=== PATIENT | female | born 1955 | race Caucasian/White ===

== ENCOUNTER → 2016-08-10 | Outpatient (CLI) | payer OTHER, MEDICAID ==
[2016-07-22 20:47] VITALS: BP 153/73
--- NOTE | 2016-08-10 16:31 | MRI ---
HISTORY: Oculomotor nerve palsy right eye Study: MRA head without contrast Comparison: Brain MRI 07/14/2016 Technique: 3-D [id number] imaging of the intracranial circulation was performed. Findings: The anterior circulation demonstrates normal anatomic findings. The internal carotid artery, Right M1 segment, and bilateral A1 segments do not demonstrates atherosclerotic changes. 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 No aneurysmal changes or evidence for vascular malformation can be identified. The posterior circulation demonstrates a posterior communicating artery on the r ight and left. The basal vertebral system is normal in its appearance. IMPRESSION: 1. Unremarkable MRA of the brain. Reported By:
== END ==
LOC: RAD 14:42
PROVIDERS: ATTEND Ophthalmology
DX: H49.01 Third [oculomotor] nerve palsy, right eye (principal)
CPT/HCPCS: 70544

== ENCOUNTER → 2016-08-25 | Outpatient (CLI) | payer OTHER, MEDICAID ==
[2016-07-22 20:47] VITALS: BP 153/73
--- NOTE | 2016-08-25 12:46 | RAD ---
HISTORY: SLE, shortness of breath Study: Two view chest Comparison: 05/27/2014 Findings: Mild atelectasis or scarring at the left lung base is unchanged. The lungs are clear without consoli dation, effusion or pneumothorax. The cardiac and mediastinal contours are within normal limits. Th e soft tissues are unremarkable. IMPRESSION: 1. Stable chest with some mild chronic scarring or atelectasis at the left lung base. No new abnorma lity identified. Reported By:
== END | disposition home or self-care (01) | DRG 204 ==
LOC: RAD 11:47
PROVIDERS: ATTEND Internal Medicine Rheumatology
DX: R06.09 Other forms of dyspnea (principal); M32.8 Other forms of systemic lupus erythematosus; R30.0 Dysuria; M47.816 Spondylosis without myelopathy or radiculopathy, lumbar region; M19.041 Primary osteoarthritis, right hand; M19.042 Primary osteoarthritis, left hand; M17.0 Bilateral primary osteoarthritis of knee; Z79.899 Other long term (current) drug therapy; Z79.891 Long term (current) use of opiate analgesic; G56.01 Carpal tunnel syndrome, right upper limb; E55.9 Vitamin D deficiency, unspecified; E56.8 Deficiency of other vitamins
CPT/HCPCS: 71020

== ENCOUNTER → 2016-11-02 | Outpatient (CLI) | payer OTHER, MEDICAID ==
[2016-07-22 20:47] VITALS: BP 153/73
--- NOTE | 2016-11-02 12:55 | RAD ---
HISTORY: back pain Study: Thoracic spine three views Comparison: None Findings: There is splinting to the left which could be positional or due to muscle spasm. The alignment is ot herwise normal. The vertebral bodies are of average height. The disc spaces are preserved. The pedic les are intact. The paraspinous soft tissues are normal. Diffuse spondylosis is present. IMPRESSION: Splinting to the left which could be positional or due to muscle spasm Spondylosis Reported By:
--- NOTE | 2016-11-02 12:57 | RAD ---
HISTORY: Right rib pain Study: Right ribs four views Comparison: August 25, 2016 Findings: Examination of the right ribs demonstrated no definite evidence for fracture, lytic, or blastic lesi on. No pneumothorax or pleural effusion is identified. The lung triana are clear. The heart is upper limits normal in size. IMPRESSION: Lungs clear Intact right ribs Reported By:
== END ==
LOC: RAD 11:58
PROVIDERS: ATTEND Nurse Practitioner Family
DX: J44.9 Chronic obstructive pulmonary disease, unspecified (principal); M51.36 Other intervertebral disc degeneration, lumbar region; R10.11 Right upper quadrant pain
CPT/HCPCS: 71111; 72072

== ENCOUNTER 2016-12-03 16:16 | Emergency (ER) | payer OTHER, MEDICAID ==
[2016-12-03 16:20] VITALS: BP 138/83; BMI 39.0
--- NOTE | 2016-12-03 17:01 | DR.GENAD ---
HPI - PCP Primary Care Physician: MICHELA - HPI Comment HPI Comment: PATIENT NOTICE RED AREA YESTERDAY. NO DRAINAGE. REDNESS EXTENDING. - Complaint/Symptoms Chief Complaint Doctors Comments: CALUS INFLAME, RED AND TENDER OVER RIGHT 5TH TOE. JERALD IS A DIABETIC. Chief Complaint:: RIGHT SMALL TOE RED AND SWOLLEN - Nurses notes reviewed Nurses Notes Review: Yes - Source History Provided: Patient - Mode of Arrival Mode of Arrival: Ambulatory - Timing Onset of Chief Complaint: 12/02/16 Came on: Suddenly - Duration Duration: Constant Duration: Days - Severity Severity: Moderate PMH - PMH Past Medical History: Yes Past Medical History: Arthritis, COPD, Diabetes, Hypertension Past Surgical History: Yes Surgical History: Cholecystectomy, Hysterectomy, Ortho Surgery - Family History History of Family Medical Conditions: Yes Family Medical History: Diabetes Mellitus, Coronary Artery Disease, Hypertension - Social History Does patient currently use any type of tobacco product: No Have you used tobacco products in the last 12 months: No Type of Tobacco Use: None Does any household member use tobacco: No Alcohol Use: None Do you use any recreational Drugs:: No Lives With: Family Lives Where: Home - infectious screening In the last 2 months have you had wt loss of >10#?: NO Have you had fever, night sweats or hemotysis?: No Have you traveled outside the country in the last 6 months?: No Isolation: Standard ROS - Review of Systems Constitutional: No Symptoms Reported Eyes: No Symptoms Reported ENTM: No Symptoms Reported Respiratoy: No Symptoms Reported Cardiovascular: No Symptoms Reported Gastrointestinal/Abdominal: No Symptoms Reported Genitourinary: No Symptoms Reported Neurological: No Symptoms Reported Musculoskeletal: Right, Foot Integumentary: Other (REDNESS RT TOE.) Hematologic/Lymphatic: Easy Bruising Endocrine: negative: Flushing, Increased Thirst, Increased Urine All Other Systems: Reviewed and Negative PE - Vital Signs Vitals: Temperature 97.8 F Pulse Rate 90 Respiratory Rate 18 Blood Pressure [Left Arm] 153/73 Blood Pressure [Right Arm] 152/72 Blood Pressure 138/83 O2 Sat by Pulse Oximetry 99 - General Limitations: No Limitations General Appearance: Alert - Head Head Exam: Normal Inspection - Eyes Eye exam: Normal Appearance - ENT ENT Exam: Normal External Ear Exam External Ear Exam: Normal External Inspection TM/Canal Exam: Bilateral Normal Nose Exam: Normal Nose Exam Mouth Exam: Normal Inspection Throat Exam: Normal Inspection - Neck Neck Exam: Trachea Midline - Chest Chest Inspection: Symmetric Chest Wall Rise - Respiratory Respiratory Exam: Normal Lung Sounds Bilat Respiratory Exam: Bilateral Clear to Auscultation - Cardiovascular Cardiovascular Exam: Regular Rate, Normal Rhythm, Normal Heart Sounds - Abdominal Exam Abdominal Exam: Normal Inspection - Extremities Extremities Exam: Normal Inspection - Back Back Exam: Normal Inspection - Neurologic Neurological Exam: Alert, Oriented X3 - Psychiatric Psychiatric Exam: Normal Affect, Normal Mood - Skin Skin Exam: Normal Color MDM - Differential Diagnosis Differential Diagnosis: CELLULITIS, INFECTED TOE. Course - Treatment Treatment: SEE ORDERS - Education/Counseling Education/Counseling: Patient, Education Educated On: Diagnosis, Needs for Follow Up ROR - XRAY XRAY Interpreted by: Radiologist XRAY Findings: REPORT DISCUSS WITH PATIENT. - Diagnosis Discharge Problem: Toe infection - Discharge Plan Disposition: 01 HOME, SELF-CARE Condition: Stable Prescriptions: Clindamycin HCl 300 mg PO Q6H #40 cap - Follow ups/Referrals Follow ups/Referrals: NATALI ABERNATHY [Primary Care Provider] - 3 days - Instructions Instructions: Cellulitis Additional Instructions: RETURN TO ED IF WORSE.
--- NOTE | 2016-12-03 17:24 | RAD ---
HISTORY: Pain, 5th toe swelling and redness Study: Three views right foot Comparison: None Findings: There are degenerative changes of the midfoot, 1st MTP joint as well as prominent calcaneal enthesop athy present. No acute fracture or dislocation. There is soft tissue swelling overlying the 5th digi t. No subcutaneous gas or foreign body identified. IMPRESSION: 1. 5th digit soft tissue swelling. No acute osseous abnormality identified. Degenerative changes as described. Reported By:
[2016-12-03] MEDS ORDERED: CLEOCIN PO ONE (18:00)
[2016-12-03] MEDS ORDERED: CLEOCIN ONE (18:07)
== END 2016-12-03 18:17 | disposition home or self-care (01) ==
LOC: ER 16:26
DX: L08.89 Other specified local infections of the skin and subcutaneous tissue (principal)
CPT/HCPCS: 73630; 99282; 99283

== ENCOUNTER → 2016-12-29 | Outpatient (CLI) | payer OTHER, MEDICAID ==
[2016-12-03 16:20] VITALS: BP 138/83
--- NOTE | 2016-12-29 11:37 | CT ---
CT abdomen pelvis without contrast Indication: Right upper quadrant abdominal pain Technique: Helical CT images of the abdomen and pelvis were obtained without IV contrast. Reformatte d images in the coronal and sagittal planes were also generated for review. Comparison: None Findings: Apart from mild left lower lobe atelectasis, the visualized lung bases are clear. Posterio r lumbosacral fusion hardware spanning L3-S1 is present. No aggressive osseous lesions are identifie d. The gallbladder is surgically absent. Within the limits of a noncontrast exam, the liver, spleen, pa ncreas, adrenals and kidneys are unremarkable. The GI tract, including the appendix is within normal limits. There is a fat containing supraumbilical ventral hernia without associated bowel loops or i nflammation. There are additional fat containing hernias within the left lateral flank and left lowe r abdominal wall. The abdominal aorta is mildly calcified without aneurysm. The urinary bladder is collapsed. The krzysztof ent is post hysterectomy. No free air, free fluid or lymphadenopathy is identified. Impression: 1. Fat containing ventral and left abdominal wall hernias, as detailed above without associated shalom l loops or inflammatory stranding. 2. Otherwise, no acute abnormality identified to explain patient's right upper quadrant pain. 3. Additional incidental findings, as above. Reported By:
== END | disposition home or self-care (01) | DRG 392 ==
LOC: RAD 10:18
PROVIDERS: ATTEND Nurse Practitioner Family
DX: R10.11 Right upper quadrant pain (principal); I97.3 Postprocedural hypertension; K43.6 Other and unspecified ventral hernia with obstruction, without gangrene
CPT/HCPCS: 74176

== ENCOUNTER 2017-01-06 17:35 | Inpatient (IN) | payer OTHER, MEDICAID ==
[2017-01-06] MEDS ORDERED: ZOFRAN INJ 4 MG VIAL IVP PRN (18:04)
--- NOTE | 2017-01-06 18:11 | DR.H&P ---
H&P - History & Physical for Day of: H&P Date: 01/06/17 - Chief Complaint Chief Complaint: abdominal pain, n/v, elevated blood sugar - Allergies Allergies/Adverse Reactions: Allergies Allergy/AdvReac Type Severity Reaction Status Date / Time Sulfamethoxazole Allergy Verified 07/22/16 19:06 w/Trimethoprim [From ] - History of Present Illness History of Present Illness: 61 [address] LARES OFFICE WITH OF ABDOMINAL PAIN WITH N/V AND BLOOD SUGAR IN OFFICE TODAY 452. PT A1C >14 IN OFFICE TODAY. PT HAS PMH OF CHF, DM, OA, CAD, HTN. PLAN TO ADMIT FOR EVALUATION OF ABDOMINAL PAIN, BLOOD SUGAR CONTROL WITH SSI, IV HYDRATION, CT ABD PELVIS WILL GIVEN PPI THERAPY, RESUME HOME BP MEDICATION - Past Medical History Past Medical History: Arthritis, COPD, Diabetes, Hypertension - Past Surgical History Surgical History: Cholecystectomy, Hysterectomy, Ortho Surgery - Family History Family Medical History: Diabetes Mellitus, Coronary Artery Disease, Hypertension - Social History Does patient currently use any type of tobacco product: No Have you used tobacco products in the last 12 months: No Type of Tobacco Use: None Does any household member use tobacco: No Alcohol Use: None Drug Use: None - Review of Systems Constitutional: Weakness Eyes: No Symptoms Reported ENT: No Symptoms Reported Respiratory: No Symptoms Reported Cardiovascular: Edema Gastrointestinal: Nausea, Vomiting, Abdominal Pain Genitourinary: Frequency, Incontinence Musculoskeletal: Back Pain, Leg Pain Skin: No Symptoms Reported Neurological: Weakness - Physical Exam Vital Signs: Blood Pressure [Left Arm] 153/73 Blood Pressure [Right Arm] 152/72 Blood Pressure 138/83 Oriented: Normal Eyes: Normal Ear: Normal Nose: Normal Throat: Dry Respiratory: RLL Diminished, LLL Diminished Cardiovascular: Edema : Normal Auscultation: Bowel Sounds: Increased Tenderness: RUQ, Epigastric Skin: Decreased Turgur Musculoskeletal: Knee Psychiatric: Anxiety Affect: Anxious Speech Pattern: Clear, Appropriate - Assessment/Plan (1) Abdominal pain Qualifiers: Abdominal location: A Status: Acute Plan: ADMIT, IV HYDRATION, PAIN AND NAUSEA CONTROL. IV PROTONIX, CBC CMP UA/ UC. CT ABD PELVIS. RESUME HOME BP MED. 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
[2017-01-06 18:34] LABS: BASOPHILS # (AUTO) 0.1 X10^3/uL (0.0-0.1); BASOPHILS % (AUTO) 0.9 % (0.2-1.0); EOSINOPHILS # (AUTO) 0.1 x10^3/uL (0.0-0.2); EOSINOPHILS % (AUTO) 1.8 % (0.9-2.9); HEMATOCRIT 45.5 % (36.0-47.0); HEMOGLOBIN 15.7 g/dL (12.0-16.0); LYMPHOCYTES # (AUTO) 1.8 X10^3/uL (1.3-2.9); LYMPHOCYTES % (AUTO) 22.5 % (21.0-51.0); MEAN CORPUSCULAR HEMOGLOBIN 27.5 pg (27.0-34.0); MEAN CORPUSCULAR HGB CONC 34.4 g/dL (33.0-35.0); MEAN CORPUSCULAR VOLUME 79.7 fL (80.0-100.0); MEAN PLATELET VOLUME 9.5 fL (7.4-11.0); MONOCYTES # (AUTO) 0.7 x10^3/uL (0.3-0.8); MONOCYTES % (AUTO) 8.4 % (0.0-13.0); NEUTROPHILS # (AUTO) 5.3 x10^3/uL (2.2-4.8); NEUTROPHILS % (AUTO) 66.4 % (42.0-75.0); PLATELET COUNT 242 X10^3/uL (150.0-450.0); RED BLOOD COUNT 5.71 X10^6/uL (3.5-5.4); RED CELL DISTRIBUTION WIDTH 14.3 % (11.6-16.5)
[2017-01-06 18:38] LABS: AMYLASE 26 Units/L (25-115); LIPASE 87 Units/L (73-393)
[2017-01-06 18:41] LABS: ALANINE AMINOTRANSFERASE 22 Units/L (12-78); ALBUMIN 3.5 g/dL (3.4-5.0); ALKALINE PHOSPHATASE 111 Units/L (46-116); ASPARTATE AMINO TRANSFERASE 11 Units/L (15-37); BLOOD UREA NITROGEN 16 mg/dL (7-18); CALCIUM 9.9 mg/dL (8.5-10.1); CARBON DIOXIDE 33.8 mmol/L (21-32); CHLORIDE 97 mmol/L (98-107); COR NA(FOR HYPERGLY) 144 mmol/L (136-145); CREATININE 0.91 mg/dL (0.55-1.02); GLUCOSE 485 mg/dL (65-99); SODIUM 135 mmol/L (136-145); TOTAL PROTEIN 7.5 g/dL (6.4-8.2); eGFR BLACK RACES > 60 (>60); eGFR NON BLACK RACES > 60 (>60)
[2017-01-06] MEDS: HumuLIN R SUBCUT PRN (21:54)
[2017-01-06] MEDS: NS 1000 ML 1,000 ML IV SCH (21:54)
[2017-01-06] MEDS: PROTONIX INJ 40 MG VIAL IVP SCH (21:54)
[2017-01-06] MEDS: SNACK - Diabetic Appropriate PO SCH (23:10)
[2017-01-07] MEDS: MORPHINE SULFATE INJ 2 MG IVP PRN ×2 (00:50→11:49)
[2017-01-07 01:24] LABS: APPEARANCE,URINE CLOUDY (CLEAR); BILIRUBIN,URINE 1+ (NEGATIVE); BLOOD/HEMOGLOBIN,URINE 5+ (NEGATIVE); COLOR,URINE YELLOW (YELLOW); GLUCOSE, URINE 4+ (NEGATIVE); KETONES,URINE NEGATIVE (NEGATIVE); LEUKOCYTE ESTERASE ,URINE 3+ (NEGATIVE); NITRITES,URINE NEGATIVE (NEGATIVE); PROTEIN,URINE 3+ (NEGATIVE); UROBILINOGEN,URINE 1+ (NORMAL)
[2017-01-07] MEDS: HumuLIN R SUBCUT PRN ×4 (05:59→21:54)
[2017-01-07 06:02] LABS: ALANINE AMINOTRANSFERASE 24 Units/L (12-78); ALKALINE PHOSPHATASE 104 Units/L (46-116); ASPARTATE AMINO TRANSFERASE 26 Units/L (15-37); BLOOD UREA NITROGEN 20 mg/dL (7-18); CALCIUM 9.4 mg/dL (8.5-10.1); CARBON DIOXIDE 32.4 mmol/L (21-32); CHLORIDE 103 mmol/L (98-107); COR CA(FOR HYPOALB) 10.2 mg/dL (8.5-10.1); COR NA(FOR HYPERGLY) 143 mmol/L (136-145); CREATININE 0.74 mg/dL (0.55-1.02); GLUCOSE 231 mg/dL (65-99); SODIUM 140 mmol/L (136-145); TOTAL PROTEIN 6.6 g/dL (6.4-8.2); eGFR BLACK RACES > 60 (>60); eGFR NON BLACK RACES > 60 (>60)
[2017-01-07 06:22] LABS: BASOPHILS # (AUTO) 0.1 X10^3/uL (0.0-0.1); BASOPHILS % (AUTO) 1.1 % (0.2-1.0); EOSINOPHILS # (AUTO) 0.2 x10^3/uL (0.0-0.2); EOSINOPHILS % (AUTO) 2.5 % (0.9-2.9); HEMATOCRIT 40.5 % (36.0-47.0); HEMOGLOBIN 14.1 g/dL (12.0-16.0); LYMPHOCYTES # (AUTO) 2.1 X10^3/uL (1.3-2.9); LYMPHOCYTES % (AUTO) 29.9 % (21.0-51.0); MEAN CORPUSCULAR HEMOGLOBIN 27.3 pg (27.0-34.0); MEAN CORPUSCULAR HGB CONC 34.9 g/dL (33.0-35.0); MEAN CORPUSCULAR VOLUME 78.4 fL (80.0-100.0); MEAN PLATELET VOLUME 9.6 fL (7.4-11.0); MONOCYTES # (AUTO) 0.7 x10^3/uL (0.3-0.8); MONOCYTES % (AUTO) 9.9 % (0.0-13.0); NEUTROPHILS % (AUTO) 56.6 % (42.0-75.0); PLATELET COUNT 190 X10^3/uL (150.0-450.0); RED BLOOD COUNT 5.16 X10^6/uL (3.5-5.4); RED CELL DISTRIBUTION WIDTH 13.8 % (11.6-16.5); WHITE BLOOD COUNT 7.1 X10^3/uL (3.6-10.0)
--- NOTE | 2017-01-07 08:44 | CT ---
HISTORY: Abdominal pain, nausea Study: CT abdomen pelvis without contrast Comparison: December 29, 2016 Technique: Axial non contrast images with coronal and sagittal reformats. Dose reduction procedures were used with MA/kv adjusted for body size. The examination is limited due to the lack of intraveno us contrast Findings: The lung bases are clear. The liver, spleen, left adrenal gland and pancreas are within normal limit s to the limitations of an unenhanced examination. There is a 1 centimeter benign right adrenal casa jamir present. The patient is status post cholecystectomy. The kidneys are unobstructed and without st ones. No ureteral calculi are identified. The appendix is normal. There is a midline periumbilical f at containing ventral hernia present. There is a larger also fat containing left flank ventral herni a present. No intraperitoneal or retroperitoneal lymphadenopathy of significance is identified. Ther e are no findings suggestive of diverticulitis or colitis. Examination of the pelvis demonstrated no evidence for pelvic masses, pelvic fluid, or pelvic lymphadenopathy. No bladder abnormality is iden tified. Postsurgical changes are present in the lumbar spine with hardware present. No lytic or bart tic skeletal lesions are identified. IMPRESSION: Fat containing supraumbilical ventral hernia Fat contained left lower abdominal/flank hernia 1 centimeter benign right adrenal adenoma Reported By:
[2017-01-07] MEDS: PROTONIX INJ 40 MG VIAL IVP SCH (10:01)
--- NOTE | 2017-01-07 15:19 | PCM.PROG ---
Progress Note - Progress Note for Day of Date: 01/07/17 - Subjective Subjective: CO NAUSEA AND RUQ PAIN AND EPIGASTRIC PAIN. CT STABLE, CONTINUE BLOOD SUGAR CONTROL, IV HYDRATION, IV CIPRO, DISCUSSED POSSIBLE D/C TUESDAY IF BLOOD SUGAR AND PAIN CONTROLLED. - Past Medical Family Social History Past Med/Fam/Surg Hx: No changes since H&P Allergies: Allergies sulfamethoxazole Allergy (Verified 01/06/17 18:21) trimethoprim [From ] Allergy (Verified 01/06/17 18:21) - Review of Systems ROS: No change since H&P - Vital Signs and I&O's Vital Signs: Temperature 97.6 F Pulse Rate [Left Radial] 71 Respiratory Rate 16 Blood Pressure [Left Arm] 187/77 Blood Pressure [Right Arm] 152/72 Blood Pressure 138/83 O2 Sat by Pulse Oximetry 99 Intake and Output: Intake & Output 01/05/17 01/06/17 01/07/17 01/08/17 11:59 11:59 11:59 11:59 Intake Total 700 Output Total 100 Balance 600 - Physical Exam Oriented: Normal Eyes: Normal Ear: Normal Nose: Normal Throat: Dry Respiratory: Diminished Cardiovascular: Edema : Normal Auscultation: Bowel Sounds: Increased Tenderness: RUQ, Epigastric Skin: Decreased Turgur Musculoskeletal: Knee Psychiatric: Anxiety Affect: Anxious Speech Pattern: Clear, Appropriate - Laboratory and Diagnostics Result Diagrams: 01/07/17 04:15 01/07/17 04:15 Labs: Laboratory WBC 7.1 X10^3/uL (3.6-10.0) 01/07/17 04:15 RBC 5.16 X10^6/uL (3.5-5.4) 01/07/17 04:15 Hgb 14.1 g/dL (12.0-16.0) 01/07/17 04:15 Hct 40.5 % (36.0-47.0) 01/07/17 04:15 MCV 78.4 fL (80.0-100.0) L 01/07/17 04:15 MCH 27.3 pg (27.0-34.0) 01/07/17 04:15 MCHC 34.9 g/dL (33.0-35.0) 01/07/17 04:15 RDW 13.8 % (11.6-16.5) 01/07/17 04:15 Plt Count 190 X10^3/uL (150.0-450.0) 01/07/17 04:15 MPV 9.6 fL (7.4-11.0) 01/07/17 04:15 Neut % 56.6 % (42.0-75.0) 01/07/17 04:15 Lymph % 29.9 % (21.0-51.0) 01/07/17 04:15 [place] % 9.9 % (0.0-13.0) 01/07/17 04:15 Eos % 2.5 % (0.9-2.9) 01/07/17 04:15 Baso % 1.1 % (0.2-1.0) H 01/07/17 04:15 Neut # 4.0 x10^3/uL (2.2-4.8) 01/07/17 04:15 Lymph # 2.1 X10^3/uL (1.3-2.9) 01/07/17 04:15 [place] # 0.7 x10^3/uL (0.3-0.8) 01/07/17 04:15 Eos # 0.2 x10^3/uL (0.0-0.2) 01/07/17 04:15 Baso # 0.1 X10^3/uL (0.0-0.1) 01/07/17 04:15 Absolute Nucleated RBC 0.4 /100WBC 01/07/17 04:15 Sodium 140 mmol/L (136-145) 01/07/17 04:15 Corrected Sodium 143 mmol/L (136-145) 01/07/17 04:15 Potassium 3.4 mmol/L (3.5-5.1) L 01/07/17 04:15 Chloride 103 mmol/L (98-107) 01/07/17 04:15 Carbon Dioxide 32.4 mmol/L (21-32) H 01/07/17 04:15 BUN 20 mg/dL (7-18) H 01/07/17 04:15 Creatinine 0.74 mg/dL (0.55-1.02) 01/07/17 04:15 Est GFR (MDRD) Af Amer > 60 (>60) 01/07/17 04:15 Est GFR (MDRD) Non-Af > 60 (>60) 01/07/17 04:15 Glucose 231 mg/dL (65-99) H 01/07/17 04:15 Calcium 9.4 mg/dL (8.5-10.1) 01/07/17 04:15 Corrected Calcium 10.2 mg/dL (8.5-10.1) H 01/07/17 04:15 Total Bilirubin 0.60 mg/dL (0.2-1.0) 01/07/17 04:15 AST 26 Units/L (15-37) 01/07/17 04:15 ALT 24 Units/L (12-78) 01/07/17 04:15 Alkaline Phosphatase 104 Units/L (46-116) 01/07/17 04:15 Total Protein 6.6 g/dL (6.4-8.2) 01/07/17 04:15 Albumin 3.0 g/dL (3.4-5.0) L 01/07/17 04:15 Globulin 3.6 g/dL (2.5-4.5) 01/07/17 04:15 Albumin/Globulin Ratio 0.8 Ratio (1.1-2.1) L 01/07/17 04:15 Amylase 26 Units/L (25-115) 01/06/17 18:18 Lipase 87 Units/L (73-393) 01/06/17 18:18 Specimen Type Clean catch urine 01/07/17 00:44 Urine Color Yellow (YELLOW) 01/07/17 00:44 Urine Appearance Cloudy (CLEAR) 01/07/17 00:44 Urine pH 5.0 (5.0 - 8.0) 01/07/17 00:44 Ur Specific [place] 1.030 (1.000-1.030) 01/07/17 00:44 Urine Protein 3+ (NEGATIVE) 01/07/17 00:44 Urine Glucose (UA) 4+ (NEGATIVE) 01/07/17 00:44 Urine Ketones Negative (NEGATIVE) 01/07/17 00:44 Urine Occult Blood 5+ (NEGATIVE) 01/07/17 00:44 Urine Nitrite Negative (NEGATIVE) 01/07/17 00:44 Urine Bilirubin 1+ (NEGATIVE) 01/07/17 00:44 Urine Acetone Small (NEGATIVE) H 01/07/17 00:44 Urine Urobilinogen 1+ (NORMAL) 01/07/17 00:44 Ur Leukocyte Esterase 3+ (NEGATIVE) 01/07/17 00:44 Urinalysis Comment QNS 01/07/17 00:44 - Plan (1) Gastritis Status: Acute Qualifiers: Gastritis type: G Chronicity: C Gastritis bleeding: G Plan: PPI THERAPY, LAST EGD PER IRFAN <6 MOS AGO. DISCUSSED BLOOD SUGAR CONTROL (2) UTI (urinary tract infection) Status: Acute Qualifiers: Urinary tract infection type: U Hematuria presence: H Indwelling urinary catheter type: I Encounter type: E Plan: CONTINUE CIPRO, UC PENDING (3) Gastroparesis Status: Acute (4) Hyperglycemia due to type 2 diabetes mellitus Status: Acute Qualifiers: Diabetes mellitus mcc insulin use: D Plan: RESTART HOME MEDS, CONTINUE SSI (5) HTN (hypertension) Status: Chronic Qualifiers: Hypertension type: H
[2017-01-07] MEDS ORDERED: LEVSIN/MAALOX/LIDOC VISC PO PRN (15:20)
[2017-01-07] MEDS ORDERED: TOUJEO SOLOSTAR PEN SC SCH (16:00)
[2017-01-07] MEDS: PROVENTIL NEB TX 0.083% 2.5MG/ 3ML NEB SCH ×2 (17:05→20:10)
[2017-01-07] MEDS ORDERED: GLUCOPHAGE ONE (17:15)
[2017-01-07] MEDS: DIFLUCAN PO SCH (17:22)
[2017-01-07] MEDS: NORVASC TAB 10 MG PO SCH (17:23)
[2017-01-07] MEDS: CIPRO IV 400 MG PREMIX* 400 MG/200 ML IV.SOLN. IV SCH ×2 (17:23→20:28)
[2017-01-07] MEDS: GLUCOPHAGE PO SCH (17:23)
[2017-01-07] MEDS: NORCO 10/325 TAB PO PRN (20:42)
[2017-01-07] MEDS: PLAQUENIL PO SCH (20:42)
[2017-01-07] MEDS: KLONOPIN TAB 0.5 MG PO SCH (20:42)
[2017-01-07] MEDS: NS 1000 ML 1,000 ML IV SCH (20:42)
[2017-01-07] MEDS ORDERED: PATIENT'S HOME MEDICATION (Albuterol Sulfate [Proair Hfa] 1 PUFF) INH SCH (21:00)
[2017-01-07] MEDS ORDERED: PATIENT'S HOME MEDICATION (Metformin Hcl [Metformin Hcl] 1 TAB) PO SCH (21:00)
[2017-01-07] MEDS: SNACK - Diabetic Appropriate PO SCH (21:56)
[2017-01-07] MEDS: NEURONTIN CAP 400 MG PO SCH (22:13)
[2017-01-08] MEDS: NS 1000 ML 1,000 ML IV SCH ×2 (00:52→13:29)
[2017-01-08] MEDS: NEURONTIN CAP 400 MG PO SCH ×3 (05:38→21:43)
[2017-01-08] MEDS ORDERED: GLUCOPHAGE ONE ×2 (06:01→16:45)
[2017-01-08] MEDS: HumuLIN R SUBCUT PRN ×4 (06:06→21:43)
[2017-01-08] MEDS: GLUCOPHAGE PO SCH ×2 (06:06→16:48)
[2017-01-08 06:26] LABS: BASOPHILS # (AUTO) 0.1 X10^3/uL (0.0-0.1); BASOPHILS % (AUTO) 1.1 % (0.2-1.0); EOSINOPHILS # (AUTO) 0.2 x10^3/uL (0.0-0.2); HEMOGLOBIN 13.5 g/dL (12.0-16.0); LYMPHOCYTES # (AUTO) 1.6 X10^3/uL (1.3-2.9); MEAN CORPUSCULAR HEMOGLOBIN 27.2 pg (27.0-34.0); MEAN CORPUSCULAR HGB CONC 34.6 g/dL (33.0-35.0); MEAN CORPUSCULAR VOLUME 78.8 fL (80.0-100.0); MONOCYTES # (AUTO) 0.6 x10^3/uL (0.3-0.8); MONOCYTES % (AUTO) 9.2 % (0.0-13.0); NEUTROPHILS # (AUTO) 3.9 x10^3/uL (2.2-4.8); NEUTROPHILS % (AUTO) 60.7 % (42.0-75.0); PLATELET COUNT 189 X10^3/uL (150.0-450.0); RED BLOOD COUNT 4.95 X10^6/uL (3.5-5.4); RED CELL DISTRIBUTION WIDTH 13.9 % (11.6-16.5); WHITE BLOOD COUNT 6.3 X10^3/uL (3.6-10.0)
[2017-01-08 06:47] LABS: ALANINE AMINOTRANSFERASE 23 Units/L (12-78); ALBUMIN 2.7 g/dL (3.4-5.0); ALKALINE PHOSPHATASE 98 Units/L (46-116); ASPARTATE AMINO TRANSFERASE 20 Units/L (15-37); BLOOD UREA NITROGEN 13 mg/dL (7-18); CALCIUM 8.8 mg/dL (8.5-10.1); CARBON DIOXIDE 31.2 mmol/L (21-32); CHLORIDE 106 mmol/L (98-107); COR CA(FOR HYPOALB) 9.8 mg/dL (8.5-10.1); COR NA(FOR HYPERGLY) 145 mmol/L (136-145); CREATININE 0.67 mg/dL (0.55-1.02); GLUCOSE 229 mg/dL (65-99); SODIUM 142 mmol/L (136-145); TOTAL PROTEIN 6.1 g/dL (6.4-8.2); eGFR BLACK RACES > 60 (>60); eGFR NON BLACK RACES > 60 (>60)
[2017-01-08] MEDS ORDERED: K-DUR TAB 20 MEQ PO PRN (07:00)
[2017-01-08] MEDS ORDERED: K-LYTE EFFERVESCENT PO PRN (07:00)
[2017-01-08] MEDS ORDERED: K-RIDER 10 MEQ/NS 100 ML 10 MEQ/100 ML BAG IV PRN (07:00)
[2017-01-08] MEDS ORDERED: POTASSIUM CHLORIDE LIQ 20 MEQ UDC PO PRN (07:00)
[2017-01-08] MEDS: PROVENTIL NEB TX 0.083% 2.5MG/ 3ML NEB SCH ×3 (08:55→21:12)
[2017-01-08] MEDS ORDERED: SITAGLIPTIN PHOSPHATE 50 MG PO SCH (09:00)
[2017-01-08] MEDS ORDERED: CITROMA PO ONE (10:07)
[2017-01-08] MEDS ORDERED: COLACE CAP 100 MG PO ONE (10:08)
[2017-01-08] MEDS: PROTONIX INJ 40 MG VIAL IVP SCH (10:22)
[2017-01-08] MEDS: CIPRO IV 400 MG PREMIX* 400 MG/200 ML IV.SOLN. IV SCH (10:22)
[2017-01-08] MEDS: NORVASC TAB 10 MG PO SCH (10:22)
[2017-01-08] MEDS: ASPIRIN 81 MG CHEWTAB PO SCH (10:23)
[2017-01-08] MEDS: ZETIA TAB 10 MG PO SCH (10:23)
[2017-01-08] MEDS: DIFLUCAN PO SCH (10:23)
[2017-01-08] MEDS: JANUVIA PO SCH (10:23)
[2017-01-08] MEDS: TOUJEO SOLOSTAR PEN SC SCH (10:24)
[2017-01-08] MEDS: LASIX PO SCH (10:24)
[2017-01-08] MEDS: PLAQUENIL PO SCH ×2 (10:24→21:43)
[2017-01-08] MEDS: KLONOPIN TAB 0.5 MG PO SCH (21:43)
[2017-01-08] MEDS: SNACK - Diabetic Appropriate PO SCH (21:47)
[2017-01-09] MEDS: NS 1000 ML 1,000 ML IV SCH (05:04)
[2017-01-09] MEDS ORDERED: GLUCOPHAGE ONE (05:29)
[2017-01-09] MEDS: NEURONTIN CAP 400 MG PO SCH ×2 (05:31→14:22)
[2017-01-09] MEDS: GLUCOPHAGE PO SCH (06:09)
[2017-01-09] MEDS: HumuLIN R SUBCUT PRN ×2 (06:15→12:28)
[2017-01-09 06:16] LABS: BASOPHILS # (AUTO) 0.1 X10^3/uL (0.0-0.1); EOSINOPHILS # (AUTO) 0.2 x10^3/uL (0.0-0.2); EOSINOPHILS % (AUTO) 2.6 % (0.9-2.9); HEMATOCRIT 41.4 % (36.0-47.0); HEMOGLOBIN 14.1 g/dL (12.0-16.0); LYMPHOCYTES # (AUTO) 2.1 X10^3/uL (1.3-2.9); LYMPHOCYTES % (AUTO) 26.7 % (21.0-51.0); MEAN CORPUSCULAR HEMOGLOBIN 27.4 pg (27.0-34.0); MEAN CORPUSCULAR HGB CONC 34.1 g/dL (33.0-35.0); MEAN CORPUSCULAR VOLUME 80.3 fL (80.0-100.0); MEAN PLATELET VOLUME 9.5 fL (7.4-11.0); MONOCYTES # (AUTO) 0.6 x10^3/uL (0.3-0.8); MONOCYTES % (AUTO) 8.2 % (0.0-13.0); NEUTROPHILS # (AUTO) 4.7 x10^3/uL (2.2-4.8); NEUTROPHILS % (AUTO) 61.5 % (42.0-75.0); PLATELET COUNT 213 X10^3/uL (150.0-450.0); RED BLOOD COUNT 5.16 X10^6/uL (3.5-5.4); RED CELL DISTRIBUTION WIDTH 13.9 % (11.6-16.5); WHITE BLOOD COUNT 7.7 X10^3/uL (3.6-10.0)
[2017-01-09 06:35] LABS: ALANINE AMINOTRANSFERASE 25 Units/L (12-78); ALBUMIN 2.9 g/dL (3.4-5.0); ALKALINE PHOSPHATASE 101 Units/L (46-116); ASPARTATE AMINO TRANSFERASE 20 Units/L (15-37); BLOOD UREA NITROGEN 12 mg/dL (7-18); CALCIUM 9.2 mg/dL (8.5-10.1); CARBON DIOXIDE 29.6 mmol/L (21-32); CHLORIDE 106 mmol/L (98-107); COR CA(FOR HYPOALB) 10.1 mg/dL (8.5-10.1); COR NA(FOR HYPERGLY) 145 mmol/L (136-145); CREATININE 0.63 mg/dL (0.55-1.02); GLUCOSE 300 mg/dL (65-99); SODIUM 140 mmol/L (136-145); TOTAL PROTEIN 6.7 g/dL (6.4-8.2); eGFR BLACK RACES > 60 (>60); eGFR NON BLACK RACES > 60 (>60)
[2017-01-09 09:11] VITALS: BMI 41.8
[2017-01-09] MEDS: TOUJEO SOLOSTAR PEN SC SCH (09:30)
[2017-01-09] MEDS: DIFLUCAN PO SCH (09:31)
[2017-01-09] MEDS: ASPIRIN 81 MG CHEWTAB PO SCH (09:31)
[2017-01-09] MEDS: PROTONIX INJ 40 MG VIAL IVP SCH ×2 (09:31→11:43)
[2017-01-09] MEDS: PLAQUENIL PO SCH (09:31)
[2017-01-09] MEDS: JANUVIA PO SCH (09:31)
[2017-01-09] MEDS: ZETIA TAB 10 MG PO SCH (09:31)
[2017-01-09] MEDS: NORVASC TAB 10 MG PO SCH (09:31)
[2017-01-09] MEDS: LASIX PO SCH (09:31)
[2017-01-09] MEDS: NORCO 10/325 TAB PO PRN (11:10)
[2017-01-09 14:24] VITALS: BP 144/86
== END 2017-01-09 14:55 | disposition home or self-care (01) | DRG 392 ==
LOC: MED/SURG 17:35
PROVIDERS: ADMIT Internal Medicine; ATTEND Internal Medicine
DX: R10.11 Right upper quadrant pain (principal); E11.65 Type 2 diabetes mellitus with hyperglycemia; R11.2 Nausea with vomiting, unspecified; R10.13 Epigastric pain; I10 Essential (primary) hypertension; J44.9 Chronic obstructive pulmonary disease, unspecified; M13.89 Other specified arthritis, multiple sites; K31.84 Gastroparesis; N39.0 Urinary tract infection, site not specified; K29.60 Other gastritis without bleeding; Z79.4 Long term (current) use of insulin
CPT/HCPCS: 36415; 74176; 80053; 81003; 82009; 82150; 83690; 85025; 87086; 94640; 94760; A4222; C9113; J0744; J1815; J2270; J2405; J7613

== ENCOUNTER 2017-01-12 10:34 | Day surgery (SDC) | payer OTHER, MEDICAID ==
[2017-01-12] MEDS ORDERED: NS 1000 ML 1,000 ML ONE (11:16)
[2017-01-12] MEDS ORDERED: DIPRIVAN VIAL 20 ML ONE (12:14)
[2017-01-12 12:58] VITALS: BP 147/88
== END 2017-01-12 12:45 | disposition home or self-care (01) ==
LOC: SURG1 10:34
PROVIDERS: ATTEND Internal Medicine
PROC: 0DB68ZX Excision of Stomach, Via Natural or Artificial Opening Endoscopic, Diagnostic (ICD-10-PCS; principal; 2017-01-12 11:45)
PROC: 0DJ08ZZ Inspection of Upper Intestinal Tract, Via Natural or Artificial Opening Endoscopic (ICD-10-PCS; principal; 2017-01-12 11:45)
DX: R10.13 Epigastric pain (principal); K44.9 Diaphragmatic hernia without obstruction or gangrene; K20.8 Other esophagitis; K29.60 Other gastritis without bleeding; K25.9 Gastric ulcer, unspecified as acute or chronic, without hemorrhage or perforation; R11.2 Nausea with vomiting, unspecified; K21.9 Gastro-esophageal reflux disease without esophagitis; R10.11 Right upper quadrant pain
CPT/HCPCS: A4217; J3490

== ENCOUNTER 2017-02-06 15:36 | Emergency (ER) | payer OTHER, MEDICAID ==
[2017-02-06 15:44] VITALS: BP 132/69; BMI 39.2
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
[2017-02-06] MEDS ORDERED: TORADOL 60 MG VIAL IM ONE (16:44)
[2017-02-06] MEDS ORDERED: TORADOL 60 MG VIAL ONE (16:48)
--- NOTE | 2017-02-06 17:45 | CT ---
Head CT without contrast: Indication: Headache following fall. Comparison: Brain MRI dated August 10, 2016. Technique: Noncontrast helical CT imaging of the head was performed with multiplanar reformations. Findings: There is no intracranial hemorrhage, mass effect, midline shift, or extra-axial fluid colle ction. The brain parenchyma and CSF containing spaces are unremarkable. No abnormality of the imaged extracranial soft tissues is identified. The paranasal sinuses and mastoid air cells are well aerated , although the right mastoid air cells are underdeveloped. Again seen is hyperostosis frontalis inter na, but no acute skeletal abnormality is appreciated. Impression: No acute intracranial abnormality. Reported By:
--- NOTE | 2017-02-06 17:48 | RAD ---
Left knee series: Indication: Left knee pain. Comparison: None available. Technique : Frontal and lateral views were provided . Findings /impression: No malalignment or acute skeletal abnormality of the left knee is identified. H owever, the distal femur demonstrates an oblique fracture status post open reduction and internal fix ation. No hardware loosening or failure is identified. There is moderate tricompartmental degenerativ e arthrosis of the knee, without significant joint effusion. Reported By:
--- NOTE | 2017-02-06 17:49 | CT ---
CT LUMBAR SPINE WITHOUT CLINICAL HISTORY: 61-year-old female status post fall with low back pain. COMPARISON: None. TECHNIQUE: Multiple, noncontrasted axial CT images were obtained from the thoracolumbar junction to the sacrum and reconstructed in the sagittal and coronal planes. FINDINGS: The most caudad, fully-formed intervertebral disc will be labeled L5-S1 for the purpose of this dictation. Straightening of the lumbar lordosis as imaged. Status post posterior spinal fusion f rom L3-S1 with bilateral pedicular screws and vertical stabilization rods without evidence of hardwar e failure. The posterior elements are normal in appearance and alignment. Multilevel degenerative acacia nge. There is no evidence of significant neural foraminal stenosis or central canal compromise. No acute fracture malalignment. Paraspinous soft tissues are unremarkable. IMPRESSION: 1. No acute fracture malalignment of the lumbar spine. 2. Multilevel degenerative change without significant neural foraminal or central canal stenosis. 3. Status post posterior spinal fusion L3-S1 without evidence of hardware failure. Reported By:
--- NOTE | 2017-02-06 17:49 | RAD ---
Three-view right knee series: Indication: Right knee pain. Comparison: None available. Technique: Frontal and lateral views of the right knee were provided. In addition, two views of the p roximal left femur are included. Findings/impression: The right knee is without malalignment, joint effusion, or acute skeletal abnorm ality. There is mild to moderate tricompartmental degenerative arthrosis, greatest within the medial compartment. The exam includes images of the left femur, which is status post open reduction and internal fixation of a radiographically healed a mid distal femoral shaft fracture. Reported By:
== END 2017-02-06 18:15 | disposition home or self-care (01) ==
LOC: ER 15:36
DX: S09.8XXA Other specified injuries of head, initial encounter (principal); S39.012A Strain of muscle, fascia and tendon of lower back, initial encounter; S83.91XA Sprain of unspecified site of right knee, initial encounter; S83.92XA Sprain of unspecified site of left knee, initial encounter; L08.89 Other specified local infections of the skin and subcutaneous tissue; Z98.1 Arthrodesis status; W19.XXXA Unspecified fall, initial encounter; Y92.9 Unspecified place or not applicable
CPT/HCPCS: 70450; 72131; 73564; 96372; 99282; 99283; J1885

== ENCOUNTER 2017-02-10 11:20 | Emergency (ER) | payer OTHER, MEDICAID ==
[2017-02-10 11:35] VITALS: BP 139/62; BMI 41.5
--- NOTE | 2017-02-10 11:44 | DR.GENAD ---
HPI - PCP Primary Care Physician: ry - HPI Comment HPI Comment: HISTORY BELOW. - Complaint/Symptoms Chief Complaint Doctors Comments: ELEVATED BLOOD GLUCOSE. FELL. PAIN LOWER BACK , LEFT HIP AND LEFT KNEE. FREQUENT FALL RECENTLY. GLUCOSE NOT RUNNING LOW. IN ED 2 DAYS AGO AFTER FALLING. Chief Complaint:: pt states" my blood sugar is high and i called Ry Castillo [employer] and she told me not to take my insulin just go to the ER. i didn't take my meds last night or this morning. I fell again this morning and my back and lt knee hurts" - Nurses notes reviewed Nurses Notes Review: Yes - Source History Provided: Patient - Mode of Arrival Mode of Arrival: EMS - Timing Onset of Chief Complaint: 02/09/17 Came on: Gradually - Duration Duration: Constant Duration: Hours - Severity Severity: Moderate PMH - PMH Past Medical History: Yes Past Medical History: Arthritis, COPD, Diabetes, Hypertension Past Surgical History: Yes Surgical History: Hysterectomy, Ortho Surgery - Family History History of Family Medical Conditions: Yes Family Medical History: Diabetes Mellitus, Coronary Artery Disease - Social History Alcohol Use: None Do you use any recreational Drugs:: No Lives With: Alone Lives Where: Home - infectious screening In the last 2 months have you had wt loss of >10#?: NO Have you had fever, night sweats or hemotysis?: No Have you traveled outside the country in the last 6 months?: No Isolation: Standard ROS - Review of Systems Constitutional: negative: Chills, Fever Eyes: No Symptoms Reported. negative: Eye Pain, Discharge ENTM: negative: Ear Pain, Nose Discharge, Nose Congestion, Throat Pain Respiratoy: Short of Breath. negative: Productive Cough, Non-Productive Cough, Wheezing, Hemoptysis Cardiovascular: Chest Pain, Edema. negative: Palpitations, Syncope Gastrointestinal/Abdominal: negative: Abdominal Pain, Constipation, Diarrhea, Nausea, Vomiting Genitourinary: negative: Dysuria, Frequency, Hematuria Neurological: Headache, Problems Walking Musculoskeletal: Left, Hip, Knee Integumentary: Bruises Hematologic/Lymphatic: Easy Bleeding, Easy Bruising Endocrine: Increased Thirst, Increased Urine All Other Systems: Reviewed and Negative PE - Vital Signs Vitals: Temperature 98.5 F Pulse Rate 88 Respiratory Rate 18 Blood Pressure [Left Arm] 149/72 Blood Pressure [Right Arm] 144/86 Blood Pressure 139/62 O2 Sat by Pulse Oximetry 98 - General Limitations: No Limitations General Appearance: Alert - Head Head Exam: Normal Inspection - Eyes Eye exam: Normal Appearance - ENT ENT Exam: Normal External Ear Exam External Ear Exam: Normal External Inspection TM/Canal Exam: Bilateral Normal Nose Exam: Normal Nose Exam Mouth Exam: Normal Inspection Throat Exam: Normal Inspection - Neck Neck Exam: Trachea Midline - Chest Chest Inspection: Symmetric Chest Wall Rise - Respiratory Respiratory Exam: Normal Lung Sounds Bilat Respiratory Exam: Bilateral Clear to Auscultation - Cardiovascular Cardiovascular Exam: Regular Rate - Abdominal Exam Abdominal Exam: Normal Bowel Sounds, Soft. negative: Tenderness - Extremities Extremities Exam: Tenderness (LT KNEE AND LT KNEE), Joint Swelling (LT HIP AND LT KNEE) - Back Back Exam: Paraspinal Tenderness, Vertebral Tenderness (LOWER SPINE) - Neurologic Neurological Exam: Alert, Oriented X3 - Psychiatric Psychiatric Exam: Normal Affect, Normal Mood - Skin Skin Exam: Erythema MDM - Differential Diagnosis Differential Diagnosis: HYPERGLYCEMIA, FALLS, CONTUSION, SPRAIN, STRAIN, FRACTURE Course - Treatment Treatment: SEE ORDERS. R INSULIN IN ED. GLUCOSE DECREASING. - Education/Counseling Education/Counseling: Patient, Education Educated On: Treatment, Diagnosis, Needs for Follow Up ROR - Labs Reviewed Laboratory Results Reviewed?: Yes Result Diagrams: 02/10/17 11:55 02/10/17 14:06 Laboratory: WBC 8.3 X10^3/uL (3.6-10.0) 02/10/17 11:55 RBC 5.63 X10^6/uL (3.5-5.4) H 02/10/17 11:55 Hgb 15.4 g/dL (12.0-16.0) 02/10/17 11:55 Hct 45.5 % (36.0-47.0) 02/10/17 11:55 MCV 80.8 fL (80.0-100.0) 02/10/17 11:55 MCH 27.4 pg (27.0-34.0) 02/10/17 11:55 MCHC 34.0 g/dL (33.0-35.0) 02/10/17 11:55 RDW 14.4 % (11.6-16.5) 02/10/17 11:55 Plt Count 230 X10^3/uL (150.0-450.0) 02/10/17 11:55 MPV 9.0 fL (7.4-11.0) 02/10/17 11:55 Neut % 76.2 % (42.0-75.0) H 02/10/17 11:55 Lymph % 12.2 % (21.0-51.0) L 02/10/17 11:55 [place] % 8.5 % (0.0-13.0) 02/10/17 11:55 Eos % 2.2 % (0.9-2.9) 02/10/17 11:55 Baso % 0.9 % (0.2-1.0) 02/10/17 11:55 Neut # 6.3 x10^3/uL (2.2-4.8) H 02/10/17 11:55 Lymph # 1.0 X10^3/uL (1.3-2.9) L 02/10/17 11:55 [place] # 0.7 x10^3/uL (0.3-0.8) 02/10/17 11:55 Eos # 0.2 x10^3/uL (0.0-0.2) 02/10/17 11:55 Baso # 0.1 X10^3/uL (0.0-0.1) 02/10/17 11:55 Absolute Nucleated RBC 0.1 /100WBC 02/10/17 11:55 Sodium 134 mmol/L (136-145) L 02/10/17 11:55 Corrected Sodium 145 mmol/L (136-145) 02/10/17 11:55 Potassium 4.2 mmol/L (3.5-5.1) 02/10/17 11:55 Chloride 97 mmol/L (98-107) L 02/10/17 11:55 Carbon Dioxide 29.8 mmol/L (21-32) 02/10/17 11:55 BUN 13 mg/dL (7-18) 02/10/17 11:55 Creatinine 0.85 mg/dL (0.55-1.02) 02/10/17 11:55 Est GFR (MDRD) Af Amer > 60 (>60) 02/10/17 11:55 Est GFR (MDRD) Non-Af > 60 (>60) 02/10/17 11:55 Glucose 431 mg/dL (65-99) H 02/10/17 14:06 POC Glucose (mg/dL) 289 mg/dL (65-99) H 02/10/17 14:43 Calcium 10.3 mg/dL (8.5-10.1) H 02/10/17 11:55 Corrected Calcium TNP 02/10/17 11:55 Total Bilirubin 0.70 mg/dL (0.2-1.0) 02/10/17 11:55 AST 14 Units/L (15-37) L 02/10/17 11:55 ALT 21 Units/L (12-78) 02/10/17 11:55 Alkaline Phosphatase 103 Units/L (46-116) 02/10/17 11:55 Creatine Kinase 27 Units/L (26-192) 02/10/17 11:55 CK-MB (CK-2) < 1.0 ng/mL (0-4.0) 02/10/17 11:55 CK/CKMB % Calc 3.7 % (<4) 02/10/17 11:55 Troponin I 0.03 ng/mL (0-1.5) 02/10/17 11:55 Total Protein 7.6 g/dL (6.4-8.2) 02/10/17 11:55 Albumin 3.5 g/dL (3.4-5.0) 02/10/17 11:55 Globulin 4.1 g/dL (2.5-4.5) 02/10/17 11:55 Albumin/Globulin Ratio 0.9 Ratio (1.1-2.1) L 02/10/17 11:55 Specimen Type Clean catch urine 02/10/17 13:00 Urine Color Pale yellow (YELLOW) 02/10/17 13:00 Urine Appearance Clear (CLEAR) 02/10/17 13:00 Urine pH 5.0 (5.0 - 8.0) 02/10/17 13:00 Ur Specific [place] 1.015 (1.000-1.030) 02/10/17 13:00 Urine Protein Negative (NEGATIVE) 02/10/17 13:00 Urine Glucose (UA) 4+ (NEGATIVE) 02/10/17 13:00 Urine Ketones 3+ (NEGATIVE) 02/10/17 13:00 Urine Occult Blood Negative (NEGATIVE) 02/10/17 13:00 Urine Nitrite Negative (NEGATIVE) 02/10/17 13:00 Urine Bilirubin Negative (NEGATIVE) 02/10/17 13:00 Urine Urobilinogen Normal (NORMAL) 02/10/17 13:00 Ur Leukocyte Esterase Negative (NEGATIVE) 02/10/17 13:00 Urine RBC 2-3 /HPF (NEGATIVE) 02/10/17 13:00 Urine WBC 0-2 /HPF (NEGATIVE) 02/10/17 13:00 Ur Squamous Epith Cells Rare /HPF (NEGATIVE) 02/10/17 13:00 Amorphous Sediment Trace /HPF (NEGATIVE) 02/10/17 13:00 Urine Bacteria Trace /HPF (NEGATIVE) 02/10/17 13:00 Ur Culture Indicated? No/not indicated 02/10/17 13:00 Acetone, Semi-Quant Small (NEGATIVE) H 02/10/17 11:55 - XRAY XRAY Interpreted by: Radiologist XRAY Findings: REPORT DISCUSS WITH PATIENT. - EKG Rhythm: NSR (EKG NOTED) - Diagnosis Discharge Problem: Hyperglycemia, Fall, Multiple contusions, Sprain of left knee, Sprain of left hip - Discharge Plan Disposition: 01 HOME, SELF-CARE Condition: Stable - Follow ups/Referrals Follow ups/Referrals: RY CASTILLO [Primary Care Provider] - 3 days - Instructions Instructions: Hyperglycemia, [id number], Musculoskeletal Pain, Knee Pain, [id number] Additional Instructions: RETURN TO ED IF WORSE.
[2017-02-10 12:07] LABS: BASOPHILS # (AUTO) 0.1 X10^3/uL (0.0-0.1); BASOPHILS % (AUTO) 0.9 % (0.2-1.0); EOSINOPHILS # (AUTO) 0.2 x10^3/uL (0.0-0.2); EOSINOPHILS % (AUTO) 2.2 % (0.9-2.9); HEMATOCRIT 45.5 % (36.0-47.0); HEMOGLOBIN 15.4 g/dL (12.0-16.0); LYMPHOCYTES % (AUTO) 12.2 % (21.0-51.0); MEAN CORPUSCULAR HEMOGLOBIN 27.4 pg (27.0-34.0); MEAN CORPUSCULAR VOLUME 80.8 fL (80.0-100.0); MONOCYTES # (AUTO) 0.7 x10^3/uL (0.3-0.8); MONOCYTES % (AUTO) 8.5 % (0.0-13.0); NEUTROPHILS # (AUTO) 6.3 x10^3/uL (2.2-4.8); NEUTROPHILS % (AUTO) 76.2 % (42.0-75.0); PLATELET COUNT 230 X10^3/uL (150.0-450.0); RED BLOOD COUNT 5.63 X10^6/uL (3.5-5.4); RED CELL DISTRIBUTION WIDTH 14.4 % (11.6-16.5); WHITE BLOOD COUNT 8.3 X10^3/uL (3.6-10.0)
[2017-02-10 12:25] LABS: ALANINE AMINOTRANSFERASE 21 Units/L (12-78); ALBUMIN 3.5 g/dL (3.4-5.0); ALKALINE PHOSPHATASE 103 Units/L (46-116); ASPARTATE AMINO TRANSFERASE 14 Units/L (15-37); BLOOD UREA NITROGEN 13 mg/dL (7-18); CALCIUM 10.3 mg/dL (8.5-10.1); CARBON DIOXIDE 29.8 mmol/L (21-32); CHLORIDE 97 mmol/L (98-107); CKMB % 3.7 % (<4); CREATINE KINASE 27 Units/L (26-192); CREATINE KINASE MB < 1.0 ng/mL (0-4.0); CREATININE 0.85 mg/dL (0.55-1.02); SODIUM 134 mmol/L (136-145); TOTAL PROTEIN 7.6 g/dL (6.4-8.2); TROPONIN I 0.03 ng/mL (0-1.5); eGFR BLACK RACES > 60 (>60); eGFR NON BLACK RACES > 60 (>60)
[2017-02-10 12:28] LABS: COR NA(FOR HYPERGLY) 145 mmol/L (136-145)
[2017-02-10] MEDS ORDERED: HumuLIN R SUBCUT ONE (12:47)
[2017-02-10] MEDS ORDERED: TORADOL 60 MG VIAL IM ONE (12:48)
[2017-02-10] MEDS ORDERED: HumuLIN R ONE ×2 (12:49→13:53)
[2017-02-10] MEDS ORDERED: TORADOL 60 MG VIAL ONE (12:49)
--- NOTE | 2017-02-10 13:09 | RAD ---
HISTORY: Fall, left hip pain. Study: Portable chest. Comparison: Rib series dated November 02, 2016. Findings: The trachea is midline. The cardiac silhouette is unremarkable. The lungs are clear without focal i nfiltrate or effusion. The bony thorax is unremarkable. IMPRESSION: No acute cardiopulmonary disease. Reported By:
--- NOTE | 2017-02-10 13:15 | RAD ---
HISTORY: Fall, left hip pain Study: Three views lumbar spine Comparison: 02/24/2012 Findings: Chronic postsurgical changes are present compatible with transpedicular fusion and laminectomy spanni ng L3 through S1. No gross perihardware lucency or malalignment is identified. The vertebral body hei ghts are preserved. There is chronic spondylosis present. Cholecystectomy clips are noted. IMPRESSION: 1. Chronic postsurgical and degenerative changes. No acute osseous abnormality identified. Reported By:
--- NOTE | 2017-02-10 13:17 | RAD ---
HISTORY: Status post fall with left leg pain Study: Two views left knee Comparison: February 06, 2017 Findings: No evidence for acute cortical disruption or dislocation. An intra major Gil princess and compression s crew are noted in the distal femur without periprosthetic lucency to suggest acute or chronic hardwar e failure with an old distal femoral shaft fracture with periosteal new bone formation. There is no effusion. Moderate tricompartmental DJD is noted. There are venous varicosities in the subcutaneous f at. IMPRESSION: Chronic changes as above without acute bony radiographic abnormality. Reported By:
--- NOTE | 2017-02-10 13:19 | RAD ---
HISTORY: Injury, fall, left hip pain Study: Left hip AP, frog-leg lateral, AP pelvis Comparison: None Findings: Postsurgical changes are present in the lower lumbar spine and lumbosacral junction. The pelvic bones and SI joints are intact. The left hip joint is intact. No joint erosions are noted. No fracture, ly tic, or blastic lesion is identified. Incidental note is made of an intra medullary princess in the left f emur fixing a remote healed mid femoral shaft fracture. IMPRESSION: No fracture identified Reported By:
[2017-02-10 13:30] LABS: BILIRUBIN,URINE NEGATIVE (NEGATIVE); BLOOD/HEMOGLOBIN,URINE NEGATIVE (NEGATIVE); GLUCOSE, URINE 4+ (NEGATIVE); KETONES,URINE 3+ (NEGATIVE); LEUKOCYTE ESTERASE ,URINE NEGATIVE (NEGATIVE); NITRITES,URINE NEGATIVE (NEGATIVE); PROTEIN,URINE NEGATIVE (NEGATIVE); UROBILINOGEN,URINE NORMAL (NORMAL)
[2017-02-10 13:38] LABS: AMORPHOUS SEDIMENT,UR TRACE /HPF (NEGATIVE); APPEARANCE,URINE CLEAR (CLEAR); BACTERIA,URINE TRACE /HPF (NEGATIVE); COLOR,URINE PALE YELLOW (YELLOW); SQUAMOUS EPITHELIAL CELL,UR RARE /HPF (NEGATIVE)
[2017-02-10] MEDS ORDERED: HumuLIN R IV ONE (13:51)
[2017-02-10] MEDS ORDERED: SNACK - Diabetic Appropriate PO SCH ×2 (20:00)
== END 2017-02-10 15:13 | disposition home or self-care (01) ==
LOC: ER 11:43
DX: S83.92XA Sprain of unspecified site of left knee, initial encounter (principal); S73.102A Unspecified sprain of left hip, initial encounter; T14.8 Other injury of unspecified body region; R73.9 Hyperglycemia, unspecified; W19.XXXA Unspecified fall, initial encounter
CPT/HCPCS: 36415; 71010; 72100; 73501; 73560; 80053; 81001; 82009; 82550; 82553; 82947; 84484; 85025; 93005; 93010; 96365; 96372; 96374; 99283; J1815; J1885

== ENCOUNTER 2017-02-23 15:01 | Inpatient (IN) | payer OTHER, MEDICAID ==
[2017-02-23 17:45] LABS: BASOPHILS # (AUTO) 0.1 X10^3/uL (0.0-0.1); BASOPHILS % (AUTO) 1.4 % (0.2-1.0); EOSINOPHILS # (AUTO) 0.1 x10^3/uL (0.0-0.2); HEMATOCRIT 45.6 % (36.0-47.0); HEMOGLOBIN 15.5 g/dL (12.0-16.0); LYMPHOCYTES # (AUTO) 1.7 X10^3/uL (1.3-2.9); MEAN CORPUSCULAR HEMOGLOBIN 27.6 pg (27.0-34.0); MEAN CORPUSCULAR HGB CONC 33.9 g/dL (33.0-35.0); MEAN CORPUSCULAR VOLUME 81.2 fL (80.0-100.0); MEAN PLATELET VOLUME 8.9 fL (7.4-11.0); MONOCYTES # (AUTO) 0.6 x10^3/uL (0.3-0.8); MONOCYTES % (AUTO) 9.3 % (0.0-13.0); NEUTROPHILS # (AUTO) 4.1 x10^3/uL (2.2-4.8); NEUTROPHILS % (AUTO) 61.3 % (42.0-75.0); PLATELET COUNT 256 X10^3/uL (150.0-450.0); RED BLOOD COUNT 5.62 X10^6/uL (3.5-5.4); RED CELL DISTRIBUTION WIDTH 14.7 % (11.6-16.5); WHITE BLOOD COUNT 6.7 X10^3/uL (3.6-10.0)
[2017-02-23 17:53] VITALS: BMI 40.6
[2017-02-23 18:03] LABS: BLOOD UREA NITROGEN 11 mg/dL (7-18); CALCIUM 9.9 mg/dL (8.5-10.1); CARBON DIOXIDE 31.6 mmol/L (21-32); CHLORIDE 103 mmol/L (98-107); COR NA(FOR HYPERGLY) 143 mmol/L (136-145); CREATININE 0.74 mg/dL (0.55-1.02); SODIUM 138 mmol/L (136-145); TROPONIN I < 0.02 ng/mL (0-1.5); eGFR BLACK RACES > 60 (>60); eGFR NON BLACK RACES > 60 (>60)
[2017-02-23 18:07] LABS: ALANINE AMINOTRANSFERASE 22 Units/L (12-78); ALBUMIN 3.1 g/dL (3.4-5.0); ALKALINE PHOSPHATASE 100 Units/L (46-116); ASPARTATE AMINO TRANSFERASE 15 Units/L (15-37); CKMB % 7.1 % (<4); COR CA(FOR HYPOALB) 10.6 mg/dL (8.5-10.1); CREATINE KINASE 14 Units/L (26-192); CREATINE KINASE MB < 1.0 ng/mL (0-4.0); TOTAL PROTEIN 6.8 g/dL (6.4-8.2)
[2017-02-23] MEDS: NS 1000 ML 1,000 ML IV SCH (18:30)
[2017-02-23] MEDS ORDERED: PROVENTIL NEB TX 0.083% 2.5MG/ 3ML NEB PRN (18:31)
[2017-02-23] MEDS ORDERED: ZANAFLEX PO PRN (18:31)
[2017-02-23] MEDS ORDERED: HumaLOG SC PRN (18:31)
--- NOTE | 2017-02-23 18:39 | DR.H&P ---
H&P - History & Physical for Day of: H&P Date: 02/23/17 - Chief Complaint Chief Complaint: SEVERE LOWER BACK PAIN, WEAKNESS, FREQUENT FALLS. UTI - Allergies Allergies/Adverse Reactions: Allergies Allergy/AdvReac Type Severity Reaction Status Date / Time ciprofloxacin Allergy Verified 02/06/17 15:37 sulfamethoxazole Allergy Verified 02/06/17 15:37 trimethoprim [From Septra] Allergy Verified 02/06/17 15:37 - History of Present Illness History of Present Illness: patient is a 61-year-old white female patient of Dr. Gardner's private practice who was a direct admit from his office today after presenting with complaints of multiple falls and an ER follow-up. Patient was seen in the ER on 914 after a fall with head injury and intractable lower back pain. Patient had a CT scan of her head on the ER visit as well as x -rays of her hip and her low back which just showed degenerative changes and arthritis. Patient continues to complain of severe low back pain and lower extremity weakness. Patient has had multiple falls and diffuse weakness. Patient's blood sugar is elevated in the office, 353. Patient also had a urine sample positive for UTI. Patient stated she is unable to care for herself at home. Due to weakness she has had multiple falls. We plan to admit patient for treatment of UTI, hyperglycemia, further evaluation of generalized weakness. And discuss possible custodial placement. Plan to resume home medications and blood sugar control. - Past Medical History Past Medical History: Anxiety, Arthritis, CHF, COPD, Diabetes, GERD, Hypertension, Sleep Apnea - Past Surgical History Surgical History: Hysterectomy, Joint Replacement, Ortho Surgery - Family History Family Medical History: Diabetes Mellitus, Heart Failure, Hypertension - Social History Does patient currently use any type of tobacco product: No Have you used tobacco products in the last 12 months: No Type of Tobacco Use: None Does any household member use tobacco: No Alcohol Use: None Drug Use: None - Medications Home Medications: Ibandronate Sodium [Boniva] 1 tab PO MONTHLY 02/23/17 [History Confirmed ] Insulin Lispro (Humalog) [HumaLOG INSULIN 10 ML VIAL *] 1 unit SC HS PRN [History Confirmed 02/23/17] Ipratropium-Albuterol [Combivent Respimat Inhaler] 2 puff IN TID 02/23/17 [ History Confirmed 02/23/17] Levocetirizine Dihydrochloride [Xyzal] 1 tab PO DAILY 02/23/17 [History Confirmed 02/23/17] Metoprolol Succinate Ext Rel [TOPROL XL 50 MG *] 2 tab PO DAILY 02/23/17 [ History Confirmed 02/23/17] Misc Home Med [Patient's Home Medication] 1 tab PO DAILY 02/23/17 [History Confirmed 02/23/17] Sitagliptin Phosphate [Januvia 25 mg] 2 tab PO DAILY 02/23/17 [History Confirmed 02/23/17] Tizanidine HCl 2 mg PO BID PRN 02/23/17 [History Confirmed 02/23/17] Tramadol HCl 100 mg PO TID 02/23/17 [History Confirmed 02/23/17] - Review of Systems Constitutional: Weakness Eyes: No Symptoms Reported ENT: No Symptoms Reported Respiratory: Shortness of Breath, SOB with Excertion Cardiovascular: Palpitations, Edema, Light Headedness Gastrointestinal: Nausea Genitourinary: Frequency, Incontinence Musculoskeletal: Back Pain, Leg Pain Skin: Ecchymosis Neurological: Weakness - Physical Exam Vital Signs: Temperature 97.9 F Pulse Rate [Right Brachial] 108 Respiratory Rate 20 Blood Pressure [Left Arm] 131/72 Blood Pressure [Right Arm] 144/86 Blood Pressure 139/62 O2 Sat by Pulse Oximetry 93 Oriented: Normal Eyes: Normal Ear: Normal Nose: Normal Throat: Normal Respiratory: RLL Diminished, LLL Diminished Cardiovascular: Normal, Edema Auscultation: Bowel Sounds: Normal Tenderness: RUQ, Epigastric Skin: Decreased Turgur, Bruising Musculoskeletal: Right, Left, Hip, Knee, Back:Thoracic, Back:Lumbar, Motor Deficit Psychiatric: Anxiety Affect: Anxious Speech Pattern: Clear, Appropriate - Assessment/Plan (1) Weakness Status: Acute Plan: ADMIT, CBC and CMP on admission, blood cultures, urinalysis and urine culture, chest x-ray and EKG. Resume home medications, blood pressure and lipid control. Blood sugar control for same insulin as well as sliding scale insulin. Consult case management for custodial placement, consult physical therapy. Rocephin 1gm iv daily, ns at kvo. Review rad reports from 02/10, pain control (2) Adult failure to thrive Status: Acute (3) Unsteady gait Status: Acute (4) Hyperglycemia Status: Acute (5) Hypertension Qualifiers: Hypertension type: essential hypertension Qualified Code(s): I10 - Essential (primary) hypertension Status: Acute (6) UTI (urinary tract infection) Status: Acute (7) HTN (hypertension) Status: Chronic
[2017-02-23] MEDS ORDERED: MORPHINE SULFATE INJ 2 MG INJ IVP PRN (18:43)
[2017-02-23] MEDS: DUONEB 0.5 MG/3 MG NEB SCH (19:59)
[2017-02-23] MEDS ORDERED: GLUCOPHAGE ONE (20:58)
[2017-02-23] MEDS: REQUIP PO SCH (21:19)
[2017-02-23] MEDS: COLACE CAP 100 MG PO SCH ×2 (21:19→21:28)
[2017-02-23] MEDS: TORADOL 15 MG VIAL IVP PRN (21:20)
[2017-02-23] MEDS: PLAQUENIL PO SCH (21:20)
[2017-02-23] MEDS: PRAVACHOL PO SCH (21:20)
[2017-02-23] MEDS: GLUCOPHAGE PO SCH (21:20)
[2017-02-23] MEDS: KLONOPIN TAB 0.5 MG PO SCH (21:20)
[2017-02-23] MEDS: NEURONTIN CAP 400 MG PO SCH (21:20)
[2017-02-23 21:48] LABS: BILIRUBIN,URINE NEGATIVE (NEGATIVE); BLOOD/HEMOGLOBIN,URINE NEGATIVE (NEGATIVE); GLUCOSE, URINE 4+ (NEGATIVE); KETONES,URINE NEGATIVE (NEGATIVE); LEUKOCYTE ESTERASE ,URINE 1+ (NEGATIVE); NITRITES,URINE NEGATIVE (NEGATIVE); PROTEIN,URINE 1+ (NEGATIVE); UROBILINOGEN,URINE NORMAL (NORMAL)
[2017-02-23] MEDS ORDERED: COMBIVENT RESPIMAT IN SCH (22:00)
[2017-02-23 22:06] LABS: APPEARANCE,URINE HAZY (CLEAR); BACTERIA,URINE 2+ /HPF (NEGATIVE); COLOR,URINE YELLOW (YELLOW); MUCUS,URINE FEW /HPF (NEGATIVE); RBC,URINE 0-3 /HPF (NEGATIVE); SQUAMOUS EPITHELIAL CELL,UR FEW /HPF (NEGATIVE)
--- NOTE | 2017-02-23 23:38 | RAD ---
HISTORY: chest pain Study: Single view of the chest Comparison: Chest radiograph from February 10, 2017 Findings: The trachea is midline. The cardiac silhouette is unremarkable. The lungs are clear without focal i nfiltrate or effusion. The bony thorax is unremarkable. IMPRESSION: 1. No acute cardiopulmonary disease. Reported By:
[2017-02-24 05:27] LABS: BASOPHILS # (AUTO) 0.1 X10^3/uL (0.0-0.1); BASOPHILS % (AUTO) 1.2 % (0.2-1.0); EOSINOPHILS # (AUTO) 0.2 x10^3/uL (0.0-0.2); EOSINOPHILS % (AUTO) 2.5 % (0.9-2.9); HEMATOCRIT 43.6 % (36.0-47.0); HEMOGLOBIN 14.8 g/dL (12.0-16.0); LYMPHOCYTES # (AUTO) 2.6 X10^3/uL (1.3-2.9); LYMPHOCYTES % (AUTO) 34.2 % (21.0-51.0); MEAN CORPUSCULAR HEMOGLOBIN 27.5 pg (27.0-34.0); MEAN CORPUSCULAR HGB CONC 33.9 g/dL (33.0-35.0); MEAN CORPUSCULAR VOLUME 81.1 fL (80.0-100.0); MEAN PLATELET VOLUME 9.4 fL (7.4-11.0); MONOCYTES # (AUTO) 0.7 x10^3/uL (0.3-0.8); MONOCYTES % (AUTO) 9.2 % (0.0-13.0); NEUTROPHILS % (AUTO) 52.9 % (42.0-75.0); PLATELET COUNT 258 X10^3/uL (150.0-450.0); RED BLOOD COUNT 5.38 X10^6/uL (3.5-5.4); RED CELL DISTRIBUTION WIDTH 14.8 % (11.6-16.5); WHITE BLOOD COUNT 7.6 X10^3/uL (3.6-10.0)
[2017-02-24 05:47] LABS: ALANINE AMINOTRANSFERASE 22 Units/L (12-78); ALBUMIN 2.8 g/dL (3.4-5.0); ALKALINE PHOSPHATASE 94 Units/L (46-116); ASPARTATE AMINO TRANSFERASE 20 Units/L (15-37); BLOOD UREA NITROGEN 14 mg/dL (7-18); CALCIUM 9.2 mg/dL (8.5-10.1); CARBON DIOXIDE 28.3 mmol/L (21-32); CHLORIDE 106 mmol/L (98-107); COR CA(FOR HYPOALB) 10.2 mg/dL (8.5-10.1); COR NA(FOR HYPERGLY) 145 mmol/L (136-145); CREATININE 0.78 mg/dL (0.55-1.02); SODIUM 142 mmol/L (136-145); TOTAL PROTEIN 6.1 g/dL (6.4-8.2); eGFR BLACK RACES > 60 (>60); eGFR NON BLACK RACES > 60 (>60)
[2017-02-24] MEDS: REQUIP PO SCH ×3 (06:00→22:00)
[2017-02-24] MEDS: NEURONTIN CAP 400 MG PO SCH ×3 (06:00→22:00)
[2017-02-24] MEDS: DUONEB 0.5 MG/3 MG NEB SCH ×3 (06:19→21:31)
[2017-02-24] MEDS: HumuLIN R SC PRN ×4 (06:57→20:38)
[2017-02-24] MEDS ORDERED: GLUCOPHAGE ONE ×2 (07:25→20:23)
[2017-02-24] MEDS: TOUJEO SOLOSTAR PEN SC SCH (09:15)
[2017-02-24] MEDS: ASPIRIN 81 MG CHEWTAB PO SCH (09:16)
[2017-02-24] MEDS: GLUCOPHAGE PO SCH ×2 (09:16→20:40)
[2017-02-24] MEDS: NORVASC TAB 10 MG PO SCH (09:17)
[2017-02-24] MEDS: HYZAAR 50/12.5 MG PO SCH (09:17)
[2017-02-24] MEDS: NexIUM PO SCH (09:17)
[2017-02-24] MEDS: PLAQUENIL PO SCH ×2 (09:18→20:40)
[2017-02-24] MEDS: ZyrTEC TAB 10 MG PO SCH (09:18)
[2017-02-24] MEDS: ZETIA TAB 10 MG PO SCH (09:18)
[2017-02-24] MEDS: TOPROL XL PO SCH (09:18)
[2017-02-24] MEDS: ROCEPHIN VIAL 1 GM 1 GM in NS 50 ML IV + SPIKE MINIBAG* 50 ML IV SCH (09:19)
[2017-02-24] MEDS: NS 1000 ML 1,000 ML IV SCH (09:24)
[2017-02-24] MEDS: NORCO 10/325 TAB PO PRN ×2 (10:28→22:27)
[2017-02-24] MEDS: PRAVACHOL PO SCH (20:40)
[2017-02-24] MEDS: COLACE CAP 100 MG PO SCH (20:40)
[2017-02-24] MEDS: KLONOPIN TAB 0.5 MG PO SCH (20:40)
[2017-02-25] MEDS: NS 1000 ML 1,000 ML IV SCH ×2 (00:30→14:35)
[2017-02-25] MEDS: DUONEB 0.5 MG/3 MG NEB SCH ×3 (05:27→21:30)
[2017-02-25] MEDS: NEURONTIN CAP 400 MG PO SCH ×3 (05:46→21:37)
[2017-02-25] MEDS: REQUIP PO SCH ×3 (05:46→21:37)
[2017-02-25] MEDS: HumuLIN R SC PRN ×4 (05:47→20:50)
[2017-02-25 06:17] LABS: BASOPHILS # (AUTO) 0.1 X10^3/uL (0.0-0.1); BASOPHILS % (AUTO) 0.9 % (0.2-1.0); EOSINOPHILS # (AUTO) 0.2 x10^3/uL (0.0-0.2); EOSINOPHILS % (AUTO) 3.2 % (0.9-2.9); HEMOGLOBIN 14.5 g/dL (12.0-16.0); LYMPHOCYTES # (AUTO) 2.1 X10^3/uL (1.3-2.9); LYMPHOCYTES % (AUTO) 27.9 % (21.0-51.0); MEAN CORPUSCULAR HEMOGLOBIN 27.6 pg (27.0-34.0); MEAN CORPUSCULAR HGB CONC 34.5 g/dL (33.0-35.0); MEAN CORPUSCULAR VOLUME 80.2 fL (80.0-100.0); MEAN PLATELET VOLUME 9.7 fL (7.4-11.0); MONOCYTES # (AUTO) 0.7 x10^3/uL (0.3-0.8); MONOCYTES % (AUTO) 9.9 % (0.0-13.0); NEUTROPHILS # (AUTO) 4.4 x10^3/uL (2.2-4.8); NEUTROPHILS % (AUTO) 58.1 % (42.0-75.0); PLATELET COUNT 228 X10^3/uL (150.0-450.0); RED BLOOD COUNT 5.24 X10^6/uL (3.5-5.4); RED CELL DISTRIBUTION WIDTH 14.4 % (11.6-16.5); WHITE BLOOD COUNT 7.5 X10^3/uL (3.6-10.0)
[2017-02-25 06:35] LABS: ALANINE AMINOTRANSFERASE 22 Units/L (12-78); ALBUMIN 2.8 g/dL (3.4-5.0); ALKALINE PHOSPHATASE 87 Units/L (46-116); ASPARTATE AMINO TRANSFERASE 16 Units/L (15-37); BLOOD UREA NITROGEN 8 mg/dL (7-18); CALCIUM 9.2 mg/dL (8.5-10.1); CARBON DIOXIDE 27.5 mmol/L (21-32); CHLORIDE 106 mmol/L (98-107); COR CA(FOR HYPOALB) 10.2 mg/dL (8.5-10.1); COR NA(FOR HYPERGLY) 142 mmol/L (136-145); SODIUM 139 mmol/L (136-145); TOTAL PROTEIN 6.2 g/dL (6.4-8.2); eGFR BLACK RACES > 60 (>60); eGFR NON BLACK RACES > 60 (>60)
[2017-02-25] MEDS ORDERED: K-RIDER 10 MEQ/NS 100 ML 10 MEQ/100 ML BAG IV PRN (07:38)
[2017-02-25] MEDS ORDERED: K-LYTE EFFERVESCENT PO PRN (07:38)
[2017-02-25] MEDS ORDERED: POTASSIUM CHLORIDE LIQ 20 MEQ UDC PO PRN (07:38)
[2017-02-25] MEDS ORDERED: GLUCOPHAGE ONE ×2 (09:32→20:38)
[2017-02-25] MEDS: NexIUM PO SCH (09:43)
[2017-02-25] MEDS: ZyrTEC TAB 10 MG PO SCH (09:43)
[2017-02-25] MEDS: NORVASC TAB 10 MG PO SCH (09:43)
[2017-02-25] MEDS: GLUCOPHAGE PO SCH ×2 (09:44→20:51)
[2017-02-25] MEDS: TOPROL XL PO SCH (09:44)
[2017-02-25] MEDS: PLAQUENIL PO SCH ×2 (09:44→20:51)
[2017-02-25] MEDS: TOUJEO SOLOSTAR PEN SC SCH (09:45)
[2017-02-25] MEDS: HYZAAR 50/12.5 MG PO SCH (09:45)
[2017-02-25] MEDS: ASPIRIN 81 MG CHEWTAB PO SCH (09:45)
[2017-02-25] MEDS: ZETIA TAB 10 MG PO SCH (09:45)
[2017-02-25] MEDS: ROCEPHIN VIAL 1 GM 1 GM in NS 50 ML IV + SPIKE MINIBAG* 50 ML IV SCH (09:45)
[2017-02-25] MEDS: K-DUR TAB 20 MEQ PO PRN (09:55)
[2017-02-25] MEDS: NORCO 10/325 TAB PO PRN (16:22)
[2017-02-25] MEDS: PRAVACHOL PO SCH (20:51)
[2017-02-25] MEDS: KLONOPIN TAB 0.5 MG PO SCH (20:51)
[2017-02-25] MEDS: COLACE CAP 100 MG PO SCH (20:51)
[2017-02-25] MEDS: TORADOL 15 MG VIAL IVP PRN (21:02)
[2017-02-26] MEDS: NS 1000 ML 1,000 ML IV SCH ×2 (04:10→17:59)
[2017-02-26] MEDS: HumuLIN R SC PRN ×4 (05:41→21:14)
[2017-02-26] MEDS: REQUIP PO SCH ×3 (05:42→21:00)
[2017-02-26] MEDS: NEURONTIN CAP 400 MG PO SCH ×3 (05:42→21:00)
[2017-02-26] MEDS: DUONEB 0.5 MG/3 MG NEB SCH ×3 (05:49→21:27)
[2017-02-26 06:33] LABS: BASOPHILS # (AUTO) 0.1 X10^3/uL (0.0-0.1); BASOPHILS % (AUTO) 0.9 % (0.2-1.0); EOSINOPHILS # (AUTO) 0.2 x10^3/uL (0.0-0.2); EOSINOPHILS % (AUTO) 2.9 % (0.9-2.9); HEMATOCRIT 40.8 % (36.0-47.0); HEMOGLOBIN 14.2 g/dL (12.0-16.0); LYMPHOCYTES # (AUTO) 1.7 X10^3/uL (1.3-2.9); LYMPHOCYTES % (AUTO) 25.1 % (21.0-51.0); MEAN CORPUSCULAR HEMOGLOBIN 27.8 pg (27.0-34.0); MEAN CORPUSCULAR HGB CONC 34.9 g/dL (33.0-35.0); MEAN CORPUSCULAR VOLUME 79.6 fL (80.0-100.0); MEAN PLATELET VOLUME 9.4 fL (7.4-11.0); MONOCYTES # (AUTO) 0.6 x10^3/uL (0.3-0.8); MONOCYTES % (AUTO) 8.7 % (0.0-13.0); NEUTROPHILS # (AUTO) 4.3 x10^3/uL (2.2-4.8); NEUTROPHILS % (AUTO) 62.4 % (42.0-75.0); PLATELET COUNT 214 X10^3/uL (150.0-450.0); RED BLOOD COUNT 5.12 X10^6/uL (3.5-5.4); RED CELL DISTRIBUTION WIDTH 14.3 % (11.6-16.5); WHITE BLOOD COUNT 6.9 X10^3/uL (3.6-10.0)
[2017-02-26 06:54] LABS: ALANINE AMINOTRANSFERASE 19 Units/L (12-78); ALBUMIN 2.7 g/dL (3.4-5.0); ALKALINE PHOSPHATASE 81 Units/L (46-116); ASPARTATE AMINO TRANSFERASE 17 Units/L (15-37); BLOOD UREA NITROGEN 12 mg/dL (7-18); CALCIUM 9.5 mg/dL (8.5-10.1); CARBON DIOXIDE 28.5 mmol/L (21-32); CHLORIDE 104 mmol/L (98-107); COR CA(FOR HYPOALB) 10.5 mg/dL (8.5-10.1); COR NA(FOR HYPERGLY) 143 mmol/L (136-145); CREATININE 0.59 mg/dL (0.55-1.02); SODIUM 139 mmol/L (136-145); eGFR BLACK RACES > 60 (>60); eGFR NON BLACK RACES > 60 (>60)
[2017-02-26] MEDS ORDERED: GLUCOPHAGE ONE ×2 (08:06→20:31)
[2017-02-26] MEDS: TOPROL XL PO SCH (08:24)
[2017-02-26] MEDS: ASPIRIN 81 MG CHEWTAB PO SCH (08:25)
[2017-02-26] MEDS: NORVASC TAB 10 MG PO SCH (08:25)
[2017-02-26] MEDS: NORCO 10/325 TAB PO PRN ×2 (08:25→20:57)
[2017-02-26] MEDS: ROCEPHIN VIAL 1 GM 1 GM in NS 50 ML IV + SPIKE MINIBAG* 50 ML IV SCH (08:25)
[2017-02-26] MEDS: PLAQUENIL PO SCH ×2 (08:25→20:56)
[2017-02-26] MEDS: NexIUM PO SCH (08:25)
[2017-02-26] MEDS: GLUCOPHAGE PO SCH ×2 (08:25→20:56)
[2017-02-26] MEDS: ZyrTEC TAB 10 MG PO SCH (08:25)
[2017-02-26] MEDS: HYZAAR 50/12.5 MG PO SCH (08:25)
[2017-02-26] MEDS: ZETIA TAB 10 MG PO SCH (08:26)
[2017-02-26] MEDS: TOUJEO SOLOSTAR PEN SC SCH (08:26)
[2017-02-26] MEDS: KLONOPIN TAB 0.5 MG PO SCH (20:56)
[2017-02-26] MEDS: PRAVACHOL PO SCH (20:56)
[2017-02-26] MEDS: COLACE CAP 100 MG PO SCH (20:58)
[2017-02-27] MEDS: DUONEB 0.5 MG/3 MG NEB SCH ×3 (05:18→21:00)
[2017-02-27 05:27] LABS: BASOPHILS % (AUTO) 0.7 % (0.2-1.0); EOSINOPHILS # (AUTO) 0.2 x10^3/uL (0.0-0.2); EOSINOPHILS % (AUTO) 2.9 % (0.9-2.9); HEMATOCRIT 38.2 % (36.0-47.0); HEMOGLOBIN 13.2 g/dL (12.0-16.0); LYMPHOCYTES # (AUTO) 2.4 X10^3/uL (1.3-2.9); LYMPHOCYTES % (AUTO) 35.2 % (21.0-51.0); MEAN CORPUSCULAR HEMOGLOBIN 27.8 pg (27.0-34.0); MEAN CORPUSCULAR HGB CONC 34.5 g/dL (33.0-35.0); MEAN CORPUSCULAR VOLUME 80.7 fL (80.0-100.0); MEAN PLATELET VOLUME 9.2 fL (7.4-11.0); MONOCYTES # (AUTO) 0.7 x10^3/uL (0.3-0.8); MONOCYTES % (AUTO) 10.3 % (0.0-13.0); NEUTROPHILS # (AUTO) 3.4 x10^3/uL (2.2-4.8); NEUTROPHILS % (AUTO) 50.9 % (42.0-75.0); PLATELET COUNT 208 X10^3/uL (150.0-450.0); RED BLOOD COUNT 4.73 X10^6/uL (3.5-5.4); RED CELL DISTRIBUTION WIDTH 14.2 % (11.6-16.5); WHITE BLOOD COUNT 6.7 X10^3/uL (3.6-10.0)
[2017-02-27] MEDS: REQUIP PO SCH ×3 (05:27→21:31)
[2017-02-27] MEDS: NEURONTIN CAP 400 MG PO SCH ×3 (05:27→21:31)
[2017-02-27] MEDS: NS 1000 ML 1,000 ML IV SCH ×3 (05:28→21:32)
[2017-02-27 06:39] LABS: BLOOD UREA NITROGEN 11 mg/dL (7-18); CALCIUM 8.9 mg/dL (8.5-10.1); CARBON DIOXIDE 29.4 mmol/L (21-32); CHLORIDE 105 mmol/L (98-107); COR NA(FOR HYPERGLY) 141 mmol/L (136-145); CREATININE 0.59 mg/dL (0.55-1.02); SODIUM 139 mmol/L (136-145); eGFR BLACK RACES > 60 (>60); eGFR NON BLACK RACES > 60 (>60)
[2017-02-27] MEDS ORDERED: GLUCOPHAGE ONE ×2 (08:09→20:34)
[2017-02-27] MEDS: HYZAAR 50/12.5 MG PO SCH (08:40)
[2017-02-27] MEDS: ASPIRIN 81 MG CHEWTAB PO SCH (08:40)
[2017-02-27] MEDS: GLUCOPHAGE PO SCH ×2 (08:40→21:31)
[2017-02-27] MEDS: ZETIA TAB 10 MG PO SCH (08:41)
[2017-02-27] MEDS: ROCEPHIN VIAL 1 GM 1 GM in NS 50 ML IV + SPIKE MINIBAG* 50 ML IV SCH (08:41)
[2017-02-27] MEDS: TOPROL XL PO SCH (08:41)
[2017-02-27] MEDS: NORVASC TAB 10 MG PO SCH (08:41)
[2017-02-27] MEDS: TOUJEO SOLOSTAR PEN SC SCH (08:41)
[2017-02-27] MEDS: PLAQUENIL PO SCH ×2 (08:41→21:31)
[2017-02-27] MEDS: NexIUM PO SCH (08:41)
[2017-02-27] MEDS: ZyrTEC TAB 10 MG PO SCH (08:42)
[2017-02-27] MEDS: K-DUR TAB 20 MEQ PO PRN (08:42)
[2017-02-27] MEDS: NORCO 10/325 TAB PO PRN ×2 (08:42→21:31)
[2017-02-27] MEDS: HumuLIN R SC PRN ×2 (11:25→22:01)
[2017-02-27 14:07] LABS: ALANINE AMINOTRANSFERASE 20 Units/L (12-78); ALBUMIN 2.5 g/dL (3.4-5.0); ALKALINE PHOSPHATASE 68 Units/L (46-116); ASPARTATE AMINO TRANSFERASE 24 Units/L (15-37); COR CA(FOR HYPOALB) 10.1 mg/dL (8.5-10.1); TOTAL PROTEIN 5.5 g/dL (6.4-8.2)
[2017-02-27] MEDS: PRAVACHOL PO SCH (21:31)
[2017-02-27] MEDS: KLONOPIN TAB 0.5 MG PO SCH (21:31)
[2017-02-27] MEDS: COLACE CAP 100 MG PO SCH (21:31)
[2017-02-28 04:34] LABS: ALANINE AMINOTRANSFERASE 20 Units/L (12-78); ALBUMIN 2.6 g/dL (3.4-5.0); ALKALINE PHOSPHATASE 74 Units/L (46-116); ASPARTATE AMINO TRANSFERASE 17 Units/L (15-37); BLOOD UREA NITROGEN 10 mg/dL (7-18); CALCIUM 9.2 mg/dL (8.5-10.1); CHLORIDE 106 mmol/L (98-107); COR CA(FOR HYPOALB) 10.3 mg/dL (8.5-10.1); COR NA(FOR HYPERGLY) 142 mmol/L (136-145); CREATININE 0.58 mg/dL (0.55-1.02); SODIUM 141 mmol/L (136-145); TOTAL PROTEIN 5.8 g/dL (6.4-8.2); eGFR BLACK RACES > 60 (>60); eGFR NON BLACK RACES > 60 (>60)
[2017-02-28 04:41] LABS: BASOPHILS # (AUTO) 0.1 X10^3/uL (0.0-0.1); EOSINOPHILS # (AUTO) 0.2 x10^3/uL (0.0-0.2); EOSINOPHILS % (AUTO) 2.7 % (0.9-2.9); HEMATOCRIT 39.8 % (36.0-47.0); HEMOGLOBIN 13.8 g/dL (12.0-16.0); LYMPHOCYTES # (AUTO) 2.1 X10^3/uL (1.3-2.9); LYMPHOCYTES % (AUTO) 32.1 % (21.0-51.0); MEAN CORPUSCULAR HEMOGLOBIN 27.7 pg (27.0-34.0); MEAN CORPUSCULAR HGB CONC 34.6 g/dL (33.0-35.0); MEAN PLATELET VOLUME 9.2 fL (7.4-11.0); MONOCYTES # (AUTO) 0.6 x10^3/uL (0.3-0.8); MONOCYTES % (AUTO) 9.9 % (0.0-13.0); NEUTROPHILS # (AUTO) 3.5 x10^3/uL (2.2-4.8); NEUTROPHILS % (AUTO) 54.3 % (42.0-75.0); PLATELET COUNT 212 X10^3/uL (150.0-450.0); RED BLOOD COUNT 4.98 X10^6/uL (3.5-5.4); RED CELL DISTRIBUTION WIDTH 14.3 % (11.6-16.5); WHITE BLOOD COUNT 6.5 X10^3/uL (3.6-10.0)
[2017-02-28] MEDS: DUONEB 0.5 MG/3 MG NEB SCH (05:02)
[2017-02-28] MEDS: REQUIP PO SCH ×2 (05:17→14:58)
[2017-02-28] MEDS: NEURONTIN CAP 400 MG PO SCH ×2 (05:17→14:58)
[2017-02-28] MEDS ORDERED: GLUCOPHAGE ONE (08:07)
[2017-02-28] MEDS: NexIUM PO SCH (08:14)
[2017-02-28] MEDS: GLUCOPHAGE PO SCH (08:15)
[2017-02-28] MEDS: ASPIRIN 81 MG CHEWTAB PO SCH (08:15)
[2017-02-28] MEDS: NORCO 10/325 TAB PO PRN ×2 (08:16→17:09)
[2017-02-28] MEDS: NORVASC TAB 10 MG PO SCH (08:17)
[2017-02-28] MEDS: ZyrTEC TAB 10 MG PO SCH (08:17)
[2017-02-28] MEDS: ZETIA TAB 10 MG PO SCH (08:17)
[2017-02-28] MEDS: HYZAAR 50/12.5 MG PO SCH (08:17)
[2017-02-28] MEDS: TOPROL XL PO SCH (08:18)
[2017-02-28] MEDS: ROCEPHIN VIAL 1 GM 1 GM in NS 50 ML IV + SPIKE MINIBAG* 50 ML IV SCH (08:18)
[2017-02-28] MEDS: PLAQUENIL PO SCH (08:18)
[2017-02-28] MEDS: TOUJEO SOLOSTAR PEN SC SCH (08:20)
[2017-02-28] MEDS ORDERED: SNACK - Diabetic Appropriate PO SCH (10:30)
[2017-02-28] MEDS: NS 1000 ML 1,000 ML IV SCH (11:39)
[2017-02-28 16:35] VITALS: BP 128/67
[2017-02-28] MEDS: HumuLIN R SC PRN (17:08)
== END 2017-02-28 17:40 | DRG 690 ==
LOC: MED/SURG 15:01
PROVIDERS: ADMIT Internal Medicine; ATTEND Internal Medicine
DX: N39.0 Urinary tract infection, site not specified (principal); R53.1 Weakness; E11.65 Type 2 diabetes mellitus with hyperglycemia; M54.5 Low back pain; R29.6 Repeated falls; R62.7 Adult failure to thrive; R26.81 Unsteadiness on feet; R60.0 Localized edema; Z91.81 History of falling; E66.8 Other obesity
CPT/HCPCS: 36415; 71010; 80053; 81001; 82550; 82553; 84132; 84484; 85025; 87040; 87086; 93005; 93010; 94760; 99231; A4222; J0696; J1815; J1817; J7620

== ENCOUNTER 2017-03-09 15:59 | Observation (INO) | payer OTHER, MEDICAID ==
[2017-03-09] MEDS ORDERED: NS 1000 ML 1,000 ML IV ONE (20:15)
[2017-03-09 21:27] LABS: BASOPHILS # (AUTO) 0.1 X10^3/uL (0.0-0.1); BASOPHILS % (AUTO) 0.7 % (0.2-1.0); EOSINOPHILS # (AUTO) 0.2 x10^3/uL (0.0-0.2); EOSINOPHILS % (AUTO) 1.7 % (0.9-2.9); HEMATOCRIT 40.7 % (36.0-47.0); HEMOGLOBIN 14.3 g/dL (12.0-16.0); LYMPHOCYTES # (AUTO) 2.5 X10^3/uL (1.3-2.9); LYMPHOCYTES % (AUTO) 23.1 % (21.0-51.0); MEAN CORPUSCULAR HEMOGLOBIN 27.7 pg (27.0-34.0); MEAN CORPUSCULAR HGB CONC 35.1 g/dL (33.0-35.0); MEAN CORPUSCULAR VOLUME 78.7 fL (80.0-100.0); MEAN PLATELET VOLUME 9.5 fL (7.4-11.0); MONOCYTES # (AUTO) 0.8 x10^3/uL (0.3-0.8); MONOCYTES % (AUTO) 7.3 % (0.0-13.0); NEUTROPHILS # (AUTO) 7.4 x10^3/uL (2.2-4.8); NEUTROPHILS % (AUTO) 67.2 % (42.0-75.0); PLATELET COUNT 173 X10^3/uL (150.0-450.0); RED BLOOD COUNT 5.17 X10^6/uL (3.5-5.4); RED CELL DISTRIBUTION WIDTH 14.2 % (11.6-16.5)
[2017-03-09 21:32] LABS: PLATELET MORPHOLOGY COMMENT NORMAL (NORMAL)
[2017-03-09] MEDS: HumuLIN R SUBCUT PRN (22:18)
--- NOTE | 2017-03-09 23:09 | RAD ---
Single view of the chest Indication: Shortness of breath Comparison: Radiograph from February 23, 2017. Findings/conclusion: The lungs are clear except for left basilar atelectasis. Heart size and pulmonar y vasculature within normal limits. Reported By:
[2017-03-09 23:58] LABS: ALANINE AMINOTRANSFERASE 37 Units/L (12-78); ALBUMIN 3.2 g/dL (3.4-5.0); ALKALINE PHOSPHATASE 103 Units/L (46-116); ASPARTATE AMINO TRANSFERASE 25 Units/L (15-37); BLOOD UREA NITROGEN 30 mg/dL (7-18); CALCIUM 9.6 mg/dL (8.5-10.1); CARBON DIOXIDE 34.9 mmol/L (21-32); CHLORIDE 100 mmol/L (98-107); CKMB % 4.4 % (<4); COR CA(FOR HYPOALB) 10.2 mg/dL (8.5-10.1); COR NA(FOR HYPERGLY) 142 mmol/L (136-145); CREATINE KINASE 23 Units/L (26-192); CREATINE KINASE MB < 1.0 ng/mL (0-4.0); CREATININE 1.42 mg/dL (0.55-1.02); FREE T4 (FREE THYROXINE) 1.34 ng/dL (0.76-1.46); MAGNESIUM 1.4 mg/dL (1.7-2.9); SODIUM 140 mmol/L (136-145); TOTAL PROTEIN 6.7 g/dL (6.4-8.2); TROPONIN I < 0.02 ng/mL (0-1.5); TSH (3RD GENERATION) 1.496 uIU/mL (0.358-3.74); eGFR BLACK RACES 49 (>60); eGFR NON BLACK RACES 40 (>60)
[2017-03-10] MEDS ORDERED: POTASSIUM CHLORIDE LIQ 20 MEQ UDC PO PRN (00:04)
[2017-03-10] MEDS ORDERED: K-RIDER 10 MEQ/NS 100 ML 10 MEQ/100 ML BAG IV PRN (00:04)
[2017-03-10] MEDS ORDERED: K-LYTE EFFERVESCENT PO PRN (00:04)
[2017-03-10] MEDS: K-DUR TAB 20 MEQ PO PRN ×2 (00:39→05:41)
[2017-03-10] MEDS: ROCEPHIN VIAL 1 GM 1 GM in NS 50 ML IV + SPIKE MINIBAG* 50 ML IV SCH ×3 (01:05→21:48)
[2017-03-10 01:06] LABS: CKMB % 4.6 % (<4); CREATINE KINASE 22 Units/L (26-192); CREATINE KINASE MB < 1.0 ng/mL (0-4.0); TROPONIN I < 0.02 ng/mL (0-1.5)
[2017-03-10 04:44] LABS: BILIRUBIN,URINE NEGATIVE (NEGATIVE); BLOOD/HEMOGLOBIN,URINE 1+ (NEGATIVE); GLUCOSE, URINE NEGATIVE (NEGATIVE); KETONES,URINE NEGATIVE (NEGATIVE); LEUKOCYTE ESTERASE ,URINE NEGATIVE (NEGATIVE); NITRITES,URINE NEGATIVE (NEGATIVE); PROTEIN,URINE 1+ (NEGATIVE); UROBILINOGEN,URINE NORMAL (NORMAL)
[2017-03-10 04:55] LABS: APPEARANCE,URINE SLIGHTLY HAZY (CLEAR); BACTERIA,URINE TRACE /HPF (NEGATIVE); COLOR,URINE YELLOW (YELLOW); RBC,URINE 0-3 /HPF (NEGATIVE); SQUAMOUS EPITHELIAL CELL,UR FEW /HPF (NEGATIVE)
[2017-03-10 05:02] LABS: BLOOD UREA NITROGEN 30 mg/dL (7-18); CALCIUM 9.7 mg/dL (8.5-10.1); CARBON DIOXIDE 35.2 mmol/L (21-32); CHLORIDE 101 mmol/L (98-107); CKMB % 4.8 % (<4); CREATINE KINASE 21 Units/L (26-192); CREATINE KINASE MB < 1.0 ng/mL (0-4.0); CREATININE 1.22 mg/dL (0.55-1.02); SODIUM 142 mmol/L (136-145); TROPONIN I < 0.02 ng/mL (0-1.5); eGFR BLACK RACES 58 (>60); eGFR NON BLACK RACES 48 (>60)
[2017-03-10 05:15] LABS: BASOPHILS # (AUTO) 0.1 X10^3/uL (0.0-0.1); BASOPHILS % (AUTO) 1.1 % (0.2-1.0); EOSINOPHILS # (AUTO) 0.3 x10^3/uL (0.0-0.2); EOSINOPHILS % (AUTO) 2.3 % (0.9-2.9); HEMATOCRIT 41.2 % (36.0-47.0); HEMOGLOBIN 14.5 g/dL (12.0-16.0); LYMPHOCYTES # (AUTO) 5.3 X10^3/uL (1.3-2.9); LYMPHOCYTES % (AUTO) 40.2 % (21.0-51.0); MEAN CORPUSCULAR HEMOGLOBIN 27.4 pg (27.0-34.0); MEAN CORPUSCULAR HGB CONC 35.2 g/dL (33.0-35.0); MEAN CORPUSCULAR VOLUME 77.7 fL (80.0-100.0); MEAN PLATELET VOLUME 9.7 fL (7.4-11.0); MONOCYTES # (AUTO) 1.1 x10^3/uL (0.3-0.8); MONOCYTES % (AUTO) 8.3 % (0.0-13.0); NEUTROPHILS # (AUTO) 6.4 x10^3/uL (2.2-4.8); NEUTROPHILS % (AUTO) 48.1 % (42.0-75.0); PLATELET COUNT 225 X10^3/uL (150.0-450.0); WHITE BLOOD COUNT 13.3 X10^3/uL (3.6-10.0)
[2017-03-10] MEDS ORDERED: MAGNESIUM SULFATE 1 GM/100 mL PREMIX 1 GM/100 ML BAG IV ONE (05:16)
[2017-03-10 10:41] VITALS: BMI 39.8
--- NOTE | 2017-03-10 13:30 | DR.H&P ---
H&P - History & Physical for Day of: H&P Date: 03/09/17 - Chief Complaint Chief Complaint: AMS, WEAKNESS, DIZZINESS, HYPOTENSION - Allergies Allergies/Adverse Reactions: Allergies Allergy/AdvReac Type Severity Reaction Status Date / Time ciprofloxacin Allergy Verified 02/06/17 15:37 sulfamethoxazole Allergy Verified 02/06/17 15:37 trimethoprim [From ] Allergy Verified 02/06/17 15:37 - History of Present Illness History of Present Illness: patient is a 7-year-old white female who was a direct admit from [facility] after altered mental status and hypotension. Patient has a history of high blood pressure CHF and diabetes. Patient states she would feel very weak and had a near syncopal episode or episode of "blacking out". The patient was noted to be hypokalemic on admission. Plan to further evaluate altered mental status and blood pressure irregularities. 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 labs. - Past Medical History Past Medical History: Anxiety, Arthritis, CHF, COPD, Diabetes, GERD, Hypertension, Sleep Apnea - Past Surgical History Surgical History: Hysterectomy, Joint Replacement, Ortho Surgery - Family History Family Medical History: Diabetes Mellitus, Heart Failure, Hypertension - Social History Does patient currently use any type of tobacco product: No Have you used tobacco products in the last 12 months: No Does any household member use tobacco: No Alcohol Use: None Drug Use: None - Medications Home Medications: Amlodipine Besylate [NORVASC 10 MG *] 10 mg PO DAILY 03/10/17 [History Confirmed 03/10/17] Clonazepam 0.5 mg PO Q12H PRN 03/10/17 [History Confirmed 03/10/17] Clonidine HCl [CATAPRES 0.2 MG TAB *] 0.2 mg PO BID 03/10/17 [History Confirmed 03/10/17] Ezetimibe [ZETIA 10 MG *] 10 mg PO DAILY 03/10/17 [History Confirmed 03/10/17] Furosemide [LASIX TAB 20 MG *] 20 mg PO DAILY 03/10/17 [History Confirmed ] Gabapentin [NEURONTIN CAP 400 MG *] 400 mg PO TID 03/10/17 [History Confirmed ] Hydrocodone-Acet 10/325 mg [NORCO 10 MG/325 MG *] 1 ea PO Q8H PRN 03/10/17 [ History Confirmed 03/10/17] Hydroxychloroquine Sulfate [PLAQUENIL TAB 200 MG *] 200 mg PO BID 03/10/17 [ History Confirmed 03/10/17] Insulin Glargine (Toujeo) [Toujeo Solostar Pen] 70 unit SUBCUT DAILY 03/10/17 [ History Confirmed 03/10/17] Insulin Lispro [Humalog Billy Kwikpen] 6 unit SUBCUT HS 03/10/17 [History Confirmed 03/10/17] Levocetirizine Dihydrochloride [Xyzal] 10 mg PO DAILY 03/10/17 [History Confirmed 03/10/17] Losartan/Hydrochlorothiazide [Losartan-Hctz 100-25 mg Tab] 1 ea PO DAILY [History Confirmed 03/10/17] Metformin HCl 1,000 mg PO BID 03/10/17 [History Confirmed 03/10/17] Metoprolol Succinate Ext Rel [TOPROL XL 50 MG *] 50 mg PO BID 03/10/17 [History Confirmed 03/10/17] Misc Home Med [Patient's Home Medication] 1 ea INH Q6H PRN 03/10/17 [History Confirmed 03/10/17] Misc Home Med [Patient's Home Medication] 1 ea PO DAILY 03/10/17 [History Confirmed 03/10/17] Misc Home Med [Patient's Home Medication] 2 puff INH TID 03/10/17 [History Confirmed 03/10/17] Nystatin (Topical) [NYSTATIN POWDER *] 1 ea TOP BID 03/10/17 [History Confirmed 03/10/17] Omeprazole 20 mg PO DAILY 03/10/17 [History Confirmed 03/10/17] Ondansetron HCl 4 mg PO Q12H PRN 03/10/17 [History Confirmed 03/10/17] Pravastatin Sodium [Pravachol] 40 mg PO HS 03/10/17 [History Confirmed 03/10/17] Ropinirole HCl [REQUIP 1 MG *] 1 mg PO TID 03/10/17 [History Confirmed 03/10/17] Sitagliptin Phosphate [Januvia 25 mg] 50 mg PO DAILY 03/10/17 [History Confirmed 03/10/17] Tizanidine HCl 2 mg PO Q12H PRN 03/10/17 [History Confirmed 03/10/17] Tramadol HCl [ULTRAM 50 MG *] 100 mg PO TID 03/10/17 [History Confirmed 03/10/17 ] - Review of Systems Constitutional: Weakness Eyes: Vision Change Respiratory: Shortness of Breath Cardiovascular: Edema Gastrointestinal: Nausea Genitourinary: Incontinence Musculoskeletal: Back Pain Skin: No Symptoms Reported Neurological: Weakness, Confusion - Physical Exam Vital Signs: Temperature 97.6 F Pulse Rate [Brachial] 66 Respiratory Rate 20 Blood Pressure [Left Arm] 147/65 Blood Pressure [Right Arm] 121/59 Blood Pressure 128/67 O2 Sat by Pulse Oximetry 95 Oriented: Person Eyes: Normal Ear: Normal Nose: Normal Throat: Normal Respiratory: RLL Diminished, LLL Diminished Cardiovascular: Normal : Normal Auscultation: Bowel Sounds: Normal Tenderness: RUQ, Epigastric Skin: Normal Musculoskeletal: Right, Left, Knee, Ankle, Back:Thoracic, Back:Lumbar Psychiatric: Anxiety Mood Description: Anxious Speech Pattern: Clear, Appropriate - Assessment/Plan (1) Altered mental status Status: Acute Plan: altered mental status, possibly due to hypokelemia. Patient also experiencing hypotension. Plan to monitor blood pressure control, sky cap, electrolyte replacement, strict I's and O's, blood sugar monitoring and repeat a.m. labs. Rule out infectious process. (2) Diabetes Status: Acute (3) Osteoarthritis Status: Acute (4) Hypokalemia Status: Acute (5) Hypotension Status: Acute
[2017-03-10] MEDS: NORCO 5/325 MG TAB PO PRN ×2 (15:06→22:53)
[2017-03-10] MEDS: NS 1/2 + KCL 20 MEQ/L 1,000 ML IV SCH (15:06)
[2017-03-10] MEDS: HumuLIN R SUBCUT PRN (18:32)
[2017-03-10] MEDS ORDERED: SNACK - Diabetic Appropriate PO SCH (20:00)
[2017-03-10] MEDS ORDERED: COLACE CAP 100 MG PO SCH (21:00)
[2017-03-10] MEDS: MILK OF MAGNESIA PO SCH (21:49)
[2017-03-11] MEDS: NORCO 5/325 MG TAB PO PRN (04:46)
[2017-03-11 05:42] LABS: BASOPHILS # (AUTO) 0.1 X10^3/uL (0.0-0.1); BASOPHILS % (AUTO) 0.8 % (0.2-1.0); EOSINOPHILS # (AUTO) 0.2 x10^3/uL (0.0-0.2); EOSINOPHILS % (AUTO) 1.8 % (0.9-2.9); HEMOGLOBIN 15.6 g/dL (12.0-16.0); LYMPHOCYTES # (AUTO) 2.5 X10^3/uL (1.3-2.9); LYMPHOCYTES % (AUTO) 25.6 % (21.0-51.0); MEAN CORPUSCULAR HEMOGLOBIN 27.6 pg (27.0-34.0); MEAN CORPUSCULAR HGB CONC 34.7 g/dL (33.0-35.0); MEAN CORPUSCULAR VOLUME 79.5 fL (80.0-100.0); MEAN PLATELET VOLUME 9.9 fL (7.4-11.0); MONOCYTES # (AUTO) 0.9 x10^3/uL (0.3-0.8); NEUTROPHILS # (AUTO) 6.2 x10^3/uL (2.2-4.8); NEUTROPHILS % (AUTO) 62.8 % (42.0-75.0); PLATELET COUNT 159 X10^3/uL (150.0-450.0); RED BLOOD COUNT 5.66 X10^6/uL (3.5-5.4); RED CELL DISTRIBUTION WIDTH 14.3 % (11.6-16.5); WHITE BLOOD COUNT 9.8 X10^3/uL (3.6-10.0)
[2017-03-11] MEDS: HumuLIN R SUBCUT PRN ×2 (05:57→12:57)
[2017-03-11 06:31] LABS: ALANINE AMINOTRANSFERASE 31 Units/L (12-78); ALBUMIN 3.3 g/dL (3.4-5.0); ALKALINE PHOSPHATASE 113 Units/L (46-116); ASPARTATE AMINO TRANSFERASE 30 Units/L (15-37); BLOOD UREA NITROGEN 16 mg/dL (7-18); CALCIUM 9.6 mg/dL (8.5-10.1); CARBON DIOXIDE 32.9 mmol/L (21-32); CHLORIDE 103 mmol/L (98-107); COR CA(FOR HYPOALB) 10.2 mg/dL (8.5-10.1); COR NA(FOR HYPERGLY) 146 mmol/L (136-145); CREATININE 0.84 mg/dL (0.55-1.02); SODIUM 144 mmol/L (136-145); TOTAL PROTEIN 7.3 g/dL (6.4-8.2); eGFR BLACK RACES > 60 (>60); eGFR NON BLACK RACES > 60 (>60)
[2017-03-11 06:41] LABS: PLATELET MORPHOLOGY COMMENT NORMAL (NORMAL)
[2017-03-11] MEDS ORDERED: KLONOPIN TAB 0.5 MG PO PRN (08:48)
[2017-03-11] MEDS: ROCEPHIN VIAL 1 GM 1 GM in NS 50 ML IV + SPIKE MINIBAG* 50 ML IV SCH (09:28)
[2017-03-11] MEDS: NEURONTIN CAP 400 MG PO SCH ×2 (09:28→15:18)
[2017-03-11] MEDS: MILK OF MAGNESIA PO SCH (09:29)
[2017-03-11 12:02] VITALS: BP 168/66
[2017-03-11] MEDS: NS 1/2 + KCL 20 MEQ/L 1,000 ML IV SCH (13:53)
== END 2017-03-11 15:55 ==
LOC: MED/SURG 15:59
PROVIDERS: ADMIT Internal Medicine; ATTEND Internal Medicine
DX: R41.82 Altered mental status, unspecified (principal); I95.89 Other hypotension; R62.7 Adult failure to thrive; R53.1 Weakness; I12.9 Hypertensive chronic kidney disease with stage 1 through stage 4 chronic kidney disease, or unspecified chronic kidney disease; R42 Dizziness and giddiness; R55 Syncope and collapse; E87.6 Hypokalemia; R06.02 Shortness of breath; E11.65 Type 2 diabetes mellitus with hyperglycemia; M19.90 Unspecified osteoarthritis, unspecified site; J44.9 Chronic obstructive pulmonary disease, unspecified; K31.84 Gastroparesis; N18.9 Chronic kidney disease, unspecified; E11.40 Type 2 diabetes mellitus with diabetic neuropathy, unspecified; E83.42 Hypomagnesemia; G47.39 Other sleep apnea; R26.89 Other abnormalities of gait and mobility
CPT/HCPCS: 36415; 71010; 80048; 80053; 81001; 82550; 82553; 83735; 84132; 84439; 84443; 84484; 85025; 87040; 87086; 93005; 93010; 94760; 97535; A4222; J7030; G0378; J0696; J1815